=== PATIENT | male | born 1950 | race Caucasian/White ===

== ENCOUNTER 2024-05-16 02:07 | Inpatient (IN) | payer MEDICARE, SELFPAY ==
[2024-05-16] VITALS (21 sets, daily range): BP systolic 107–155; BP diastolic 47–81; PULSE 59–115; RESP 14–20; TEMP 36.2–37.7; O2SAT 94–99; BMI 28.9
--- NOTE | ~2024-05-16 | CT_ITS ---
EXAMINATION: CT ABDOMEN AND PELVIS WITH CONTRAST CLINICAL INFORMATION: Reason for Exam Right lower quadrant pain?appy COMPARISON: None available. TECHNIQUE: Multidetector volumetric images were obtained from the superior aspect of the liver through the pubic symphysis following administration 85 mL of Omnipaque 350 intravenous contrast. Sagittal and coronal reformatted images were obtained on the technologist's workstation. Oral contrast: No This CT examination was performed using dose optimization techniques as appropriate, variously including the following: *Automated exposure control *Adjustment of mA and/or kV according to patient size (this includes techniques or standardized protocols for targeted exams where dose is matched to indication/reason for exam; i.e. extremities or head) *Use of iterative reconstruction technique DLP: 544 mGy-cm FINDINGS: LUNG BASES: The visualized lung bases are unremarkable. LIVER, GALLBLADDER, AND BILIARY TREE: The liver is normal in size, shape, and attenuation. No focal hepatic lesion or biliary ductal dilatation is present. Gallbladder is physiologically distended with minimal suspected cholelithiasis. No gallbladder wall thickening or surrounding inflammation. PANCREAS: Unremarkable. SPLEEN: Unremarkable. ADRENAL GLANDS: Unremarkable. KIDNEYS AND URETERS: No hydronephrosis or obstructing calculus bilaterally. Small right upper pole renal cyst; no follow-up recommended. Left nephrogram appears slightly delayed, which may be due to relative hypoperfusion with severe stenosis noted at the origin of the renal artery. An accessory lower pole renal artery is also noted. BLADDER: Unremarkable. GASTROINTESTINAL TRACT: No evidence of bowel obstruction or significant wall thickening. The appendix is fluid-filled and dilated to approximately 12 mm in diameter. Appendicoliths are present along with significant surrounding stranding, consistent with appendicitis. No free air or discrete abscess is seen at this time. ABDOMINAL WALL: No significant hernia is appreciated. LYMPH NODES: Normal. VASCULAR: There is atherosclerotic calcification along the aorta and iliac arteries. PELVIC VISCERA: Metallic prostatic seeds are noted. OSSEOUS STRUCTURES: Multilevel degenerative changes in the spine. CT/CT abdomen pelvis w IV con IMPRESSION: 1. Findings consistent with acute appendicitis as described above. 2. 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 3. Suspected minimal cholelithiasis.
--- NOTE | ~2024-05-16 | XR_ITS ---
EXAMINATION: XR CHEST CLINICAL INFORMATION: Preop COMPARISON: None available. TECHNIQUE: Frontal view of the chest was obtained. FINDINGS: Median sternotomy wires. Mediastinal clips. Heart size within normal limits. Low lung volumes. There is no gross pneumothorax. Trace left pleural effusion. Mild asymmetric elevation of the left lung base. Mild bibasilar opacities likely represent subsegmental atelectasis, although an infectious/inflammatory process should also be considered in the appropriate clinical setting. Dextroscoliosis of the thoracic spine with multilevel degenerative changes. XR/XR chest 1V IMPRESSION: Mild bibasilar opacities likely represent subsegmental atelectasis, although an infectious/inflammatory process should also be considered in the appropriate clinical setting. Trace left pleural effusion. This study was presented today May 16, 2024 for interpretation. Stat results provided at this time as requested by referring provider.
--- NOTE | 2024-05-16 02:21 | ED.ABDPAIN ---
HPI - Abdominal Pain General Chief Complaint: Abdominal Pain Stated Complaint: ? Appendicitis Time Seen by Provider: 05/16/24 02:21 Source: patient Mode of arrival: ambulatory Limitations: no limitations History of Present Illness ED Provider: alison HERNANDEZ narrative: Patient with no significant past medical history noticed sudden onset of right lower abdominal pain on 05/14/24 a.m. since then pain continued to get worse associated with nausea and vomiting poor appetite no fever no chills patient never had similar pain in the past no urinary complaints no hematuria patient still has appendix Related Data Allergies Allergy/AdvReac Type Severity Reaction Status Date / Time ibuprofen [From MOTRIN] Allergy Intermediate HIVES Verified 05/16/24 02:13 Penicillins [PENICILLINS] Allergy Unknown DOESN'T Verified 05/16/24 02:13 REMEMBER Review of Systems Review of Systems Yes all other systems are reviewed and are negative [facility] Past Medical History Medical History (Updated 05/16/24 @ 06:17 by Ketaon Murrell MD) Hyperlipidemia Hypertension Coronary artery disease Surgical History (Updated 05/16/24 @ 06:17 by Keaton Murrell MD) S/P CABG x 4 Social History Social History Smoked in Last 30 Days: No Use of substances other than those prescribed or required for medical reasons: No Advance Directives: No Advance Directives Information Provided: Yes Do you have a plan to hurt others: No Plan Physical Exam ED Vital Signs: Vital Signs - 24 hr 05/16/24 02:12 05/16/24 02:24 Temperature 99.0 F 98.8 F Pulse Rate 70 69 Respiratory Rate 14 17 Blood Pressure 143/70 H 150/67 H Pulse Oximetry 96 97 Oxygen Delivery Method Room Air Room Air BMI result Body Mass Index 28.9 Appearance: Alert. Oriented X3. In mild discomfort Eyes: No pallor or icterus ENT: Pharynx normal. Oral Mucosa moist Neck: Normal inspection. Neck supple. CVS: Normal heart rate and rhythm. Pulses normal. Respiratory: No respiratory distress. Equal air entry bilateral, no wheezing/rales/rhonchi Abdomen: Soft and tenderness and guarding right lower quadrant no rebound tenderness. Bowel sounds are present, no mass palpable, no CVA tenderness Skin: Skin warm and dry. Normal skin color. Normal skin turgor. Extremities: No lower extremity edema. No calf tenderness Neuro: Oriented X 3. Medical Decision Making Medical Decision Making [facility] Narrative: Patient has acute onset of lower quadrant pain CT scan showed acute appendicitis without any fluid collection , case discussed with Dr. Talbert will admit patient to surgical service for appendectomy Differential Diagnosis Differential Diagnoses: The differential diagnosis associated with the presentation includes Kidney stone/appendicitis/diverticulitis Admission/Observation Consideration of admission/observation: Escalation of care including admission/observation considered Consult Healthcare Provider Management of the patient was discussed with: Oil Developer Dr. Talbert surgeon will admit to the service Lab Data [facility] Lab Attestation statement: I reviewed the patient's lab results. 05/16/24 02:31 05/16/24 02:31 Labs: Lab Results 05/16/24 05/16/24 Range/Units 02:31 04:52 WBC 18.4 H (4.8-10.8) X10*3/uL RBC 5.07 (4.60-5.80) X10*6/uL Hgb 15.4 (14.0-18.0) g/dl Hct 44.1 (42.0-52.0) % MCV 87.0 (80.0-98.0) fL MCH 30.4 (27.0-33.0) pg MCHC 34.9 (31.0-36.0) g/dl RDW 12.4 (11.0-16.0) % Plt Count 188 (160-400) X10*3/uL MPV 10.7 (9.4-12.4) fL Immature Gran % (Auto) 0.4 (0.0-0.4) % Neut % (Auto) 81.2 H (45-73) % Lymph % (Auto) 8.7 L (20-40) % [place] % (Auto) 9.0 (2-11) % Eos % (Auto) 0.4 (0-4) % Baso % (Auto) 0.3 (0-2) % Lymph # (Auto) 1.6 (1.2-4.9) X10*3/uL [place] # (Auto) 1.7 H (0.1-1.2) X10*3/uL Eos # (Auto) 0.1 (0.0-0.4) X10*3/uL Baso # (Auto) 0.1 (0.0-0.2) X10*3/uL Abs Immat Gran (auto) 0.07 H (0.00-0.03) X10*3/uL Absolute Neuts (auto) 14.9 H (2.0-8.3) x10*3/uL Absolute Nucleated RBC 0.000 (0.0-0.012) X10*3/uL Nucleated RBC % (auto) 0.0 (0.0-0.2) /100WBC Smear Tech's Comments VERIFIED Sodium 133 L (135-145) mmol/L Potassium 4.0 (3.3-5.1) mmol/L Chloride 96 (96-108) mmol/L Carbon Dioxide 24 (22-29) mmol/L Anion Gap 17 (12-20) BUN 22 H (9-16) mg/dL Creatinine 1.39 (0.5-1.4) mg/dL Estim Creat Clear Calc 46.6 Estimated GFR 50 Random Glucose 238 H (60-115) mg/dL Lactic Acid 2.3 H* (0.5-2.0) mmol/L Lactic Acid F/U @ 2Hr 2.2 H* (0.5-2.0) mmol/L Calcium 9.5 (8.4-10.2) mg/dL Total Bilirubin 1.6 H (0.0-1.0) mg/dL AST 15 (5-37) U/L ALT 15 (0-40) U/L Alkaline Phosphatase 80 (39-117) U/L Total Protein 7.7 (6.5-8.0) g/dL Albumin 4.4 (3.5-5.0) g/dL Lipase 20 (8-78) U/L Independent Interpretation I performed an independent interpretation of an: EKG, Plain X-Ray and CT Scan Interpretation: Normal sinus rhythm heart rate 92 beats per minute normal interval normal axis no acute ST-T changes no acute ischemia Radiology Impression Discussion of test interpretation with radiology: I have reviewed the radiologist's reading. Radiologist Impression: Close Abdomen/Pelvis CT (Signed) Pierre Carpenter - 05/16/24 Launch?Image [address] [address] [address] Scan Report Signed Patient: Jerardo Lacey MR#: [id number] : 1950 Acct:[id number] Age/Sex: 73 / M ADM Date: 05/16/24 Loc: HO.ED Attending Dr: Ordering Physician: Keaton Murrell MD Date of Service: 05/16/24 Procedure(s): CT abdomen pelvis w IV con Accession Number(s): [id number] cc: Physician,Unknown ; Keaton Murrell MD~ EXAMINATION: CT ABDOMEN AND PELVIS WITH CONTRAST CLINICAL INFORMATION: Reason for Exam Right lower quadrant pain?appy COMPARISON: None available. TECHNIQUE: Multidetector volumetric images were obtained from the superior aspect of the liver through the pubic symphysis following administration 85 mL of Omnipaque 350 intravenous contrast. Sagittal and coronal reformatted images were obtained on the technologist's workstation. Oral contrast: No This CT examination was performed using dose optimization techniques as appropriate, variously including the following: *Automated exposure control *Adjustment of mA and/or kV according to patient size (this includes techniques or standardized protocols for targeted exams where dose is matched to indication/reason for exam; i.e. extremities or head) *Use of iterative reconstruction technique DLP: 544 mGy-cm FINDINGS: LUNG BASES: The visualized lung bases are unremarkable. LIVER, GALLBLADDER, AND BILIARY TREE: The liver is normal in size, shape, and attenuation. No focal hepatic lesion or biliary ductal dilatation is present. Gallbladder is physiologically distended with minimal suspected cholelithiasis. No gallbladder wall thickening or surrounding inflammation. PANCREAS: Unremarkable. SPLEEN: Unremarkable. ADRENAL GLANDS: Unremarkable. KIDNEYS AND URETERS: No hydronephrosis or obstructing calculus bilaterally. Small right upper pole renal cyst; no follow-up recommended. Left nephrogram appears slightly delayed, which may be due to relative hypoperfusion with severe stenosis noted at the origin of the renal artery. An accessory lower pole renal artery is also noted. BLADDER: Unremarkable. GASTROINTESTINAL TRACT: No evidence of bowel obstruction or significant wall thickening. The appendix is fluid-filled and dilated to approximately 12 mm in diameter. Appendicoliths are present along with significant surrounding stranding, consistent with appendicitis. No free air or discrete abscess is seen at this time. ABDOMINAL WALL: No significant hernia is appreciated. LYMPH NODES: Normal. VASCULAR: There is atherosclerotic calcification along the aorta and iliac arteries. PELVIC VISCERA: Metallic prostatic seeds are noted. OSSEOUS STRUCTURES: Multilevel degenerative changes in the spine. CT/CT abdomen pelvis w IV con IMPRESSION: 1. Findings consistent with acute appendicitis as described above. 2. 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 3. Suspected minimal cholelithiasis. Medications Administered Discontinued Medications Generic Name Dose Route Start Last Admin Trade Name Freq PRN Reason Stop Dose Admin Sodium Chloride 1,000 mls @ 999 mls/hr 05/16/24 02:22 05/16/24 04:10 Ns IV 05/16/24 03:22 Infused .Q1H1M ONE Infusion Sodium Chloride 1,000 mls @ 999 mls/hr 05/16/24 02:54 05/16/24 04:40 Ns IV 05/16/24 03:54 Infused .Q1H1M ONE Infusion Piperacillin Sod/Tazobactam 50 mls @ 100 mls/hr 05/16/24 02:54 05/16/24 04:11 Sod 3.375 gm/ Sodium Chloride IV 05/16/24 03:23 Infused ONCE ONE Infusion Iohexol 85 ml 05/16/24 03:32 05/16/24 03:32 Iohexol 350 Mg/Ml 100 Ml Infus..Btl IV 05/16/24 03:33 85 ml ONCE ONE Administration Morphine Sulfate 4 mg 05/16/24 02:30 05/16/24 02:45 Morphine Sulfate 4 Mg/Ml Cartridge IVPUSH 05/16/24 02:31 4 mg ONCE ONE Administration Protocol Ondansetron HCl 4 mg 05/16/24 02:30 05/16/24 02:45 Ondansetron Hcl 4 Mg/2 Ml Vial IVPUSH 05/16/24 02:31 4 mg ONCE ONE Administration Discharge Plan Discharge Clinical Impression: Acute appendicitis Patient Disposition: Admitted As Inpatient Print Language: Algerian
[2024-05-16 02:40] LABS: Basophils Absolute Auto 0.1 X10*3/uL (0.0-0.2); Basophils Percent Auto 0.3 % (0-2); Eosinophils Absolute Auto 0.1 X10*3/uL (0.0-0.4); Eosinophils Percent Auto 0.4 % (0-4); Hematocrit 44.1 % (42.0-52.0); Hemoglobin 15.4 g/dl (14.0-18.0); Imm Gran Abs Auto 0.07 X10*3/uL (0.00-0.03); Imm Gran Pct Auto 0.4 % (0.0-0.4); Lymphocytes Absolute Auto 1.6 X10*3/uL (1.2-4.9); Lymphocytes Percent Auto 8.7 % (20-40); MANUAL DIFF FLAG SCAN; Mean Corpuscular HGB Conc 34.9 g/dl (31.0-36.0); Mean Corpuscular Hemoglobin 30.4 pg (27.0-33.0); Mean Platelet Volume 10.7 fL (9.4-12.4); Monocytes Absolute Auto 1.7 X10*3/uL (0.1-1.2); Neutrophils Absolute Auto 14.9 x10*3/uL (2.0-8.3); Neutrophils Percent Auto 81.2 % (45-73); Platelet Count 188 X10*3/uL (160-400); Red Blood Count 5.07 X10*6/uL (4.60-5.80); Red Cell Distribution Width 12.4 % (11.0-16.0); SCAN SMEAR FLAG 1; White Blood Count 18.4 X10*3/uL (4.8-10.8)
[2024-05-16] MEDS: 0.9 % Sodium Chloride 1,000 ML 999 ML IV ×2 (02:44→03:37)
[2024-05-16] MEDS: ondansetron HCL 4 MG/2 ML VIAL IVPUSH (02:45)
[2024-05-16] MEDS: Morphine Sulfate 4 MG/ML CARTRIDGE IVPUSH (02:45)
[2024-05-16 02:54] LABS: Lactic Acid 2.3 mmol/L (0.5-2.0)
[2024-05-16 02:58] LABS: SLIDE REVIEW VERIFIED
[2024-05-16 03:02] LABS: Alanine Aminotransferase 15 U/L (0-40); Albumin Level 4.4 g/dL (3.5-5.0); Alkaline Phosphatase 80 U/L (39-117); Anion Gap 17 (12-20); Aspartate Amino Transferase 15 U/L (5-37); Bilirubin Total 1.6 mg/dL (0.0-1.0); Blood Urea Nitrogen 22 mg/dL (9-16); Calcium 9.5 mg/dL (8.4-10.2); Carbon Dioxide 24 mmol/L (22-29); Chloride 96 mmol/L (96-108); Creatinine Clr Calc Pharmacy 46.6; Estimated Glomerular Filt Rate 50; Glucose Random 238 mg/dL (60-115); Lipase 20 U/L (8-78); Sodium 133 mmol/L (135-145); Total Protein 7.7 g/dL (6.5-8.0)
[2024-05-16] MEDS: iohexoL 350 MG/ML 100 ML INFUS..BTL 85 ML IV (03:32)
[2024-05-16] MEDS: Piperacillin Sodium/Tazobactam 3.375 GM in 0.9 % Sodium Chloride 50 ML IV ×4 (03:37→22:41)
[2024-05-16 04:35] LABS: Reflex Lactate? Lactic Acid Added
[2024-05-16 05:11] LABS: ~Lactic Acid-LAB USE ONLY 2.2 mmol/L (0.5-2.0)
--- NOTE | 2024-05-16 06:02 | ECG_ITS ---
Test Reason : PRE OP Blood Pressure : / mmHG Vent. Rate : 092 BPM Atrial Rate : 092 BPM P-R Int : 170 ms QRS Dur : 082 ms QT Int : 364 ms P-R-T Axes : -07 026 024 degrees QTc Int : 450 ms Normal sinus rhythm Nonspecific T wave abnormality Abnormal ECG No previous ECGs available Referred By: Keaton Murrell Electronically Signed By:Kyler Helms
[2024-05-16] MEDS: Lactated Ringers 1,000 ML 125 ML IVCONT ×2 (06:18→17:23)
[2024-05-16 06:55] LABS: Reflex Lactate? 2 Y
--- NOTE | 2024-05-16 07:20 | PC.NURSE ---
Care of Pt assumed at change of shift. Pt us currently resting comfortably with eyes closed on stretcher. NAD noted at this time.
--- NOTE | 2024-05-16 07:45 | PM.HPGS ---
History of Present Illness History of Present Illness Date of Service: 05/16/24 Chief complaint: Acute appendicitis Narrative: Jerardo Lacey is a 73 year old male presenting with complaints of abdominal pain in the right lower quadrant. The pain began in the right lower quadrant and has stayed in this location for the past 24 hours. He denies nausea, vomiting, fever, or chills. The pain increases with walking but is improved when staying still. He reports the pain initially at 10/10 but is currently at 5/10 after pain medication. He denies a previous history of similar pain. Workup in the emergency department revealed tenderness in the right lower quadrant over McBurney's point. WBC was elevated at 18.4. CT abdomen and pelvis revealed a fecalith with possible dilated appendix suggestive of acute appendicitis. He is admitted to the surgical service for further management of the acute appendicitis. Review of Systems Review of Systems: Yes all other systems are reviewed and are negative Constitutional: Constitutional: Denies chills, Denies fever(s), Denies headache(s), Denies poor appetite and Denies weakness ENT: Denies headache(s) Cardiovascular: Cardiovascular: Denies chest pain, Denies irregular heart rhythm, Denies palpitations and Denies dyspnea Respiratory: Respiratory: Denies cough, Denies excessive phlegm production and Denies dyspnea Gastrointestinal: Gastrointestinal: Reports abdominal pain, Denies bloating, Denies change in bowel habits, Denies constipation, Denies heartburn, Denies diarrhea, Denies nausea and Denies vomiting Genitourinary: Genitourinary: Denies difficulty urinating and Denies urinary frequency Musculoskeletal: Musculoskeletal: Denies back pain, Denies muscle weakness and Denies numbness Integumentary/Breasts: Skin/Breast: Denies changing lesions and Denies unusual bruising Neurologic: Denies headache(s), Denies numbness, Denies paresthesias and Denies weakness Psychiatric: Psychiatric: Denies anxiety and Denies depression Endocrine: Endocrine: Denies palpitations Hematologic/Lymphatic: Hematologic/Lymphatic: Denies lymphadenopathy PMFSH Past Medical History Medical History Hyperlipidemia Hypertension Coronary artery disease Surgical History Surgical History S/P CABG x 4 Social History Social History Smoked in Last 30 Days: No Use of substances other than those prescribed or required for medical reasons: No Advance Directives: No Advance Directives Information Provided: Yes Do you have a plan to hurt others: No Plan Meds Allergies Allergy/AdvReac Type Severity Reaction Status Date / Time ibuprofen [From MOTRIN] Allergy Intermediate HIVES Verified 05/16/24 02:13 Penicillins [PENICILLINS] Allergy Unknown DOESN'T Verified 05/16/24 02:13 REMEMBER Active Medications: Current Medications Hydromorphone HCl (Hydromorphone Hcl 0.5 Mg/0.5 Ml Syringe) 0.5 mg IVPUSH Q3H PRN; Protocol PRN Reason: Pain, Severe (Pain Scale 7-10) Piperacillin Sod/Tazobactam (Sod 3.375 gm/ Sodium Chloride) 50 mls @ 100 mls/hr IV Q6H MAN Lactated Ringer's (Lr) 1,000 mls @ 125 mls/hr IVCONT .Q8H MAN Last Admin: 05/16/24 06:18 Dose: 125 mls/hr Home Medications ?Medication ?Instructions ?Recorded ?Confirmed ?Last Taken ?Type aspirin 81 mg chewable tablet 81 mg PO DAILY 05/16/24 05/16/24 Unknown History atorvastatin 80 mg tablet 80 mg PO DAILY 05/16/24 05/16/24 Unknown History empagliflozin 25 mg tablet 25 mg PO DAILY 05/16/24 05/16/24 Unknown History (Jardiance) hydrochlorothiazide 25 mg tablet 25 mg PO DAILY 05/16/24 05/16/24 Unknown History lisinopril 10 mg tablet 10 mg PO DAILY 05/16/24 05/16/24 Unknown History metformin 1,000 mg tablet 1,000 mg PO BID 05/16/24 05/16/24 Unknown History metoprolol succinate 25 mg 25 mg PO DAILY 05/16/24 05/16/24 Unknown History tablet,extended release 24 hr Physical Exam Vital Signs: Vital Signs: Last Vital Signs Temp 99.7 F 05/16/24 06:00 Pulse 86 05/16/24 06:00 Resp 16 05/16/24 06:00 BP 129/81 05/16/24 06:00 Pulse Ox 94 08/05/24 06:00 O2 Del Method Room Air 05/16/24 06:00 BMI result Body Mass Index 28.9 Const: General: cooperative and no acute distress Nutritional Appearance: well nourished Orientation/consciousness: patient oriented x3 Limitations: no limitations HEENT: Head: Yes normocephalic and Yes atraumatic Ears: hearing grossly normal bilaterally Chest: Other: Median sternotomy incision Resp: Effort & Inspection: normal respiratory effort, no audible wheezes, no cough and no respiratory distress Cardio: Jugular venous distension: no JVD GI: Other: Soft, tender in the right lower quadrant, negative Rovsing sign, localized rebound and guarding. Inspection: Yes normal to inspection Percussion: Yes normal to percussion Skin: Other: Warm, dry, no rash Neuro: General: patient oriented x3 Extrem: General: Yes no clubbing, cyanosis or edema Results Results Labs: Short CBC 05/16/24 Range/Units 02:31 WBC 18.4 H (4.8-10.8) X10*3/uL Hgb 15.4 (14.0-18.0) g/dl Hct 44.1 (42.0-52.0) % Plt Count 188 (160-400) X10*3/uL BMP 05/16/24 02:31 Sodium 133 L Potassium 4.0 Chloride 96 Carbon Dioxide 24 BUN 22 H Creatinine 1.39 Calcium 9.5 Liver Function 05/16/24 Range/Units 02:31 Total Bilirubin 1.6 H (0.0-1.0) mg/dL AST 15 (5-37) U/L ALT 15 (0-40) U/L Alkaline Phosphatase 80 (39-117) U/L Albumin 4.4 (3.5-5.0) g/dL Assessment and Plan (1) Acute appendicitis: Qualifiers: Acute appendicitis type: with localized peritonitis Appendicitis gangrene presence: unspecified whether gangrene present Appendicitis perforation presence: unspecified whether perforation present Appendicitis abscess presence: unspecified whether abscess present Qualified Code(s): K35.30 - Acute appendicitis with localized peritonitis, without perforation or gangrene Status: Acute Plan 73-year-old male patient with a prior history of coronary artery disease presenting today with abdominal pain in the right lower quadrant. On examination he is tender in the right lower quadrant over McBurney's point. Laboratories revealed an elevated WBC of 18.6. CT abdomen and pelvis are suggestive of acute appendicitis. There is a fecalith noted at the base of the appendix as well. I recommended a laparoscopic or possible open appendectomy and after discussion of the procedure, risks, and alternatives, consents to the surgery. He has been added onto the operative schedule for today. Quality Stroke Does the patient have a stroke diagnosis?: No VTE Prior VTE?: No VTE Risk Level:: Surgical - moderate VTE Device Contraindication: N/A - Device Ordered VTE Drug Contraindication: Treatment Not Indicated Procedures Date of Service Date of Service: 05/16/24
[2024-05-16 08:54] LABS: ~Lactic Acid-LAB USE ONLY 1.9 mmol/L (0.5-2.0)
--- NOTE | 2024-05-16 09:27 | PHA.MEDREC ---
Addendum entered by Yana Maier RPh 05/16/24 09:38: reviewed Original Note: Pharmacy Consult ? Medication Reconciliation Pharmacy has completed the medication reconciliation. Confirmed medications with patient.
--- NOTE | 2024-05-16 11:09 | MHC.CM.PN ---
pt live alone is indepedent has no previous services dc plan home no servies
--- NOTE | 2024-05-16 12:05 | P.CONAN_ITS ---
HPI - Anesthesia Eval Consult details Narrative: appy Anesthesia Pre-Procedure Meds Is the patient on any of the following meds?: SGLT2 Inhib If yes to any meds - educate patient: Pt education - increased risk of aspiration and/or euvolemic DKA and Pt education - possibility of cancelled proc at provider's discretion PMF Active Problems Active Problems: All Active Problems Acute appendicitis (Acute) Past Medical History Medical History Hyperlipidemia Hypertension Coronary artery disease Family History Family history of problems with anesthesia: No Surgical History Surgical History S/P CABG x 4 History of Problems with Anesthesia: No Social History Social History Smoked in Last 30 Days: No Use of substances other than those prescribed or required for medical reasons: No Advance Directives: No Advance Directives Information Provided: Yes Do you have a plan to hurt others: No Plan service: No Meds Allergies Allergy/AdvReac Type Severity Reaction Status Date / Time ibuprofen [From MOTRIN] Allergy Intermediate HIVES Verified 05/16/24 02:13 Penicillins [PENICILLINS] Allergy Unknown DOESN'T Verified 05/16/24 02:13 REMEMBER Active Medications: Current Medications Hydromorphone HCl (Hydromorphone Hcl 0.5 Mg/0.5 Ml Syringe) 0.5 mg IVPUSH Q3H PRN; Protocol PRN Reason: Pain, Severe (Pain Scale 7-10) Piperacillin Sod/Tazobactam (Sod 3.375 gm/ Sodium Chloride) 50 mls @ 100 mls/hr IV Q6H [facility] Last Infusion: 05/16/24 10:38 Dose: Infused Lactated Ringer's (Lr) 1,000 mls @ 125 mls/hr IVCONT .Q8H [facility] Last Admin: 05/16/24 06:18 Dose: 125 mls/hr Home Medications ?Medication ?Instructions ?Recorded ?Confirmed ?Last Taken ?Type aspirin 81 mg chewable tablet 81 mg PO DAILY 05/16/24 05/16/24 05/16/24 History atorvastatin 80 mg tablet 80 mg PO DAILY 05/16/24 05/16/2424 History empagliflozin 25 mg tablet 25 mg PO DAILY 05/16/24 05/16/24 05/16/24 History (Jardiance) hydrochlorothiazide 25 mg tablet 25 mg PO DAILY 05/16/24 05/16/24 05/16/24 History lisinopril 10 mg tablet 10 mg PO DAILY 05/16/24 05/16/24 05/16/24 History metformin 1,000 mg tablet 1,000 mg PO DAILY 05/16/24 05/16/24 05/16/24 History metoprolol succinate 25 mg 25 mg PO DAILY 05/16/24 05/16/24 05/16/24 History tablet,extended release 24 hr Exam Height,Weight and Vital Signs: Height 5 ft 6 in Weight 81.1 kg Last Vital Signs Temp 99.7 F 05/16/24 06:00 Pulse 86 05/16/24 06:00 Resp 16 05/16/24 06:00 BP 129/81 05/16/24 06:00 Pulse Ox 94 05/16/24 06:00 O2 Del Method Room Air 05/16/24 06:00 Pertinent Lab Results Pertinent Lab Results: Laboratory Tests 05/16/24 05/16/24 05/16/24 02:31 04:52 08:39 WBC 18.4 H RBC 5.07 Hgb 15.4 Hct 44.1 MCV 87.0 MCH 30.4 MCHC 34.9 RDW 12.4 Plt Count 188 MPV 10.7 Immature Gran % (Auto) 0.4 Neut % (Auto) 81.2 H Lymph % (Auto) 8.7 L [place] % (Auto) 9.0 Eos % (Auto) 0.4 Baso % (Auto) 0.3 Lymph # (Auto) 1.6 [place] # (Auto) 1.7 H Eos # (Auto) 0.1 Baso # (Auto) 0.1 Abs Immat Gran (auto) 0.07 H Absolute Neuts (auto) 14.9 H Absolute Nucleated RBC 0.000 Nucleated RBC % (auto) 0.0 Smear Tech's Comments VERIFIED Sodium 133 L Potassium 4.0 Chloride 96 Carbon Dioxide 24 Anion Gap 17 BUN 22 H Creatinine 1.39 Estim Creat Clear Calc 46.6 Estimated GFR 50 Random Glucose 238 H Lactic Acid 2.3 H* Lactic Acid F/U @ 2Hr 2.2 H* Lactic Acid F/U @ 4Hr 1.9 Calcium 9.5 Total Bilirubin 1.6 H AST 15 ALT 15 Alkaline Phosphatase 80 Total Protein 7.7 Albumin 4.4 Lipase 20 Airway Mallampati Class: II TM Dist: >3cm Neck ROM: Limited Heart: rrr Lungs: cta Assessment and Plan Assessment Anesthesia Assessment: Anesthesia Plan Discussed and Chart Reviewed Final Anesthetic Review Family History of Problems with Anesthesia: No History of Problems with Anesthesia: No NPO: Yes ASA Class: III Final Preanesthetic Review: No Changes in Pt Med Stat, Meds/Allgs Chart Reviewed, Consent Obtained/Reviewed and Anes Risks/Benef Reviewed Patient Risk: Intermediate Procedure Risk: Low Anesthetic Plan Anesthetic Plan: GA Disposition: Standard PACU
--- NOTE | 2024-05-16 12:25 | PC.NURSE ---
Pt noted to have dried blood on underwear, reported he had some bleeding while trying to urinate yesterday. Reports this has resolved and no episodes of it today.
--- NOTE | 2024-05-16 12:41 | PC.NURSE ---
Report given to SSS
[2024-05-16] MEDS: Lactated Ringers 1,000 ML 80 ML IVCONT (13:23)
[2024-05-16 13:34] LABS: Glucose, Whole Blood 123 mg/dL (60-115)
--- NOTE | 2024-05-16 15:18 | P.OP_ITS ---
Operative Note Operative Note Date of Service: 05/16/24 Narrative: Preoperative diagnosis: [] Acute appendicitis Postop diagnosis: [] Local Perforated appendicitis with abscess Procedure [] laparoscopic appendectomy, drainage appendiceal abscess Surgeon: [] Neil Business Risk Analyst: [] Type of Anesthesia: [] General Indication for surgery: [] Patient had a locally perforated appendix which was adhered to the pelvic sidewall with a contained abscess. No other gross intra- abdominal pathology demonstrated Findings: [] Patient brought to the operating room, placed on operative table supine position, after an adequate level of general anesthesia was induced, the patient's abdomen was prepped and draped in usual sterile fashion. Using a supraumbilical curvilinear incision, Larsen technique was used to insufflate abdominal cavity to 15 mm of CO2 lower midline and suprapubic ports were placed under direct laparoscopic view, the patient placed in Trendelenburg position, and tilted to the left. Findings were as noted above. Cecum was identified and a phlegmon along the right iliac fossa area was explored. The appendix was intimately adhered to this and once it was , a localized abscess was demonstrated. Appendix had it is mesentery sequentially taken down using double firing of ligature device. It was then transected the cecal base using endoscopic BANDAR stapler. Specimen was placed in Endo-Catch bag, a retrieved through the umbilical port. Abdominal cavity was very very copiously irrigated and secured hemostasis. A Pietro-Forte drain was left in the right lower quadrant/right iliac fossa and exited through the suprapubic port and secured to the skin using 2-0 nylon. All ports removed under direct laparoscopic view. Wounds were closed in the following manner; umbilical wound is fascia reapproximated using interrupted 0 Vicryl sutures. Skin wounds were closed using subcuticular 4-0 Vicryl sutures followed by Steri-Strips and sterile dressings. Wounds were infiltrated 0.5% Marcaine at completion. Sponge, needle, and instrument counts reported correct. Patient tolerated the procedure well and emerged from anesthesia stable condition. EBL minimal
[2024-05-16] MEDS: HYDROmorphone HCl 0.5 MG/0.5 ML SYRINGE IVPUSH (22:41)
[2024-05-17] MEDS: Lactated Ringers 1,000 ML 125 ML IVCONT ×4 (01:02→20:02)
[2024-05-17 03:44] VITALS: BP 129/60; PULSE 69; RESP 18; TEMP 36.7; O2SAT 93
[2024-05-17] MEDS: Piperacillin Sodium/Tazobactam 3.375 GM in 0.9 % Sodium Chloride 50 ML IV ×4 (04:48→20:03)
[2024-05-17 06:16] LABS: Hematocrit 33.9 % (42.0-52.0); Hemoglobin 11.6 g/dl (14.0-18.0); Mean Corpuscular HGB Conc 34.2 g/dl (31.0-36.0); Mean Corpuscular Hemoglobin 30.4 pg (27.0-33.0); Mean Platelet Volume 11.3 fL (9.4-12.4); Platelet Count 134 X10*3/uL (160-400); Red Blood Count 3.81 X10*6/uL (4.60-5.80); Red Cell Distribution Width 12.7 % (11.0-16.0); White Blood Count 10.2 X10*3/uL (4.8-10.8)
--- NOTE | 2024-05-17 06:46 | PM.PNGS ---
Subjective Subjective Date of Service: 05/17/24 <[facility] Filed: 05/17/24 07:02> 05/17/24 <Ziggy Trejo MD - Last Filed: 05/17/24 09:06> Interval history: Patient reports he is doing well. He reports having abdominal pain but says it is manageable. Denies having an ice pack on incisions overnight. Reports having a bowel movement overnight but denies passing gas. Denies any pain or burning with urination. Tolerating clear liquids without difficulty. Denies headache, nausea, vomiting, shortness or breath or chest pain. <[facility] Filed: 05/17/24 07:02> Physical Exam Vital Signs: Vital Signs: Last Vital Signs Temp 98.0 F 05/17/24 03:44 Pulse 69 05/17/24 03:44 Resp 18 05/17/24 03:44 BP 129/60 05/17/24 03:44 Pulse Ox 93 05/17/24 03:44 O2 Del Method Nasal Cannula 05/17/24 03:44 O2 Flow Rate 2 05/17/24 03:44 BMI result Body Mass Index 28.9 <[facility] Filed: 05/17/24 07:02> Const: General: cooperative, healthy appearing, comfortable and no acute distress <[facility] Filed: 05/17/24 07:02> Orientation/consciousness: patient oriented x3 <[facility] Filed: 05/17/24 07:02> Chest: Chest palpation & inspection: normal inspection of the chest <[facility] Filed: 05/17/24 07:02> Resp: Effort & Inspection: normal respiratory effort and able to speak in complete sentences <[facility] Filed: 05/17/24 07:02> Auscultation: clear to auscultation bilaterally <[facility] Filed: 05/17/24 07:02> Cardio: Rate: regular rate <[facility] Filed: 05/17/24 07:02> Rhythm: regular rhythm <[facility] Filed: 05/17/24 07:02> Heart sounds: S1 normal heart sound present and S2 normal heart sound present <[facility] Filed: 05/17/24 07:02> GI: Inspection: Yes normal to inspection, Yes incision (bandages are clear, dry and intact) and Yes other (bulb suction in place, scant amount of drainage visualized) <[facility] Filed: 05/17/24 07:02> Skin: Lesions: no lesions <[facility] Filed: 05/17/24 07:02> Rashes: no rashes <[facility] Filed: 05/17/24 07:02> Neuro: General: patient oriented x3 <[facility] Filed: 05/17/24 07:02> Objective Data Active Medications Acetaminophen (Acetaminophen 325 Mg Tablet) 650 mg PO Q6H PRN PRN Reason: Pain, Mild (Pain Scale 1-3), fever or headache Calcium Carbonate (Calcium Carbonate 750 Mg Tab.Chew) 750 mg PO Q4H PRN PRN Reason: Heartburn Hydromorphone HCl (Hydromorphone Hcl 0.5 Mg/0.5 Ml Syringe) 0.5 mg IVPUSH Q3H PRN; Protocol PRN Reason: Pain, Severe (Pain Scale 7-10) Last Admin: 05/16/24 22:41 Dose: 0.5 mg Documented By: MARCOS Piperacillin Sod/Tazobactam (Sod 3.375 gm/ Sodium Chloride) 50 mls @ 100 mls/hr IV Q6H [facility] Last Infusion: 05/17/24 05:27 Dose: Infused Documented By: MARCOS Lactated Ringer's (Lr) 1,000 mls @ 125 mls/hr IVCONT .Q8H [facility] Last Admin: 05/17/24 05:47 Dose: 125 mls/hr Documented By: MARCOS Lactated Ringer's (Lr) 1,000 mls @ 80 mls/hr IVCONT .[id number] [facility] Last Admin: 05/17/24 02:08 Dose: Not Given Documented By: MARCOS Non-Admin Reason: 125/hr per surgeon Magnesium Hydroxide (Milk Of Magnesia 30 Ml Oral.Susp) 30 ml PO DAILY PRN PRN Reason: Constipation Melatonin (Melatonin 3 Mg Tablet) 6 mg PO BEDTIME PRN PRN Reason: Insomnia Sodium Chloride (0.9 % Sodium Chloride Flush 3 Ml Syringe) 3 ml IVFLUSH QSHIFT [facility] Last Admin: 05/17/24 01:15 Dose: Not Given Documented By: MARCOS Non-Admin Reason: IV Running <[facility] Filed: 05/17/24 07:02> Labs CBC & Chem 7: 05/17/24 05:11 05/16/24 02:31 <[facility] Filed: 05/17/24 07:02> Labs: Laboratory Results - last 24 hr 05/16/24 05/16/24 05/17/24 08:39 13:31 05:11 MCV 89.0 MCH 30.4 MCHC 34.2 RDW 12.7 Plt Count 134 L D MPV 11.3 Absolute Nucleated RBC 0.000 Nucleated RBC % (auto) 0.0 POC Glucose 123 H Lactic Acid F/U @ 4Hr 1.9 <[facility] Filed: 05/17/24 07:02> Procedures Date of Service Date of Service: 05/17/24 <[facility] Filed: 05/17/24 07:02> 05/17/24 <Ziggy Trejo MD - Last Filed: 05/17/24 09:06> Progress Note: A&P Assessment and plan (1) Acute perforated appendicitis: Status: Acute <[facility] Filed: 05/17/24 07:02> Assessment and Plan: Patient is s/p laparoscopic appendectomy due to acute appendicitis with perforation. He is managing his pain well, recommended to apply ice pack over the incision Continue ambulation as tolerated Consider trial of PO pain medications and antibiotics Recommend advancing to regular soft diet, if well tolerated can consider discharge later today <[facility] Filed: 05/17/24 07:02> Patient is s/p laparoscopic appendectomy due to acute appendicitis with perforation. He is managing his pain well, recommended to apply ice pack over the incision Continue ambulation as tolerated Consider trial of PO pain medications and antibiotics Recommend advancing to regular soft diet, if well tolerated can consider discharge perhaps tomorrow. Continue IV antibiotics for now. Probably DC GAB tomorrow as well <Ziggy Trejo MD - Last Filed: 05/17/24 09:06> Time Spent With Patient Time: Total time managing care of this patient today ____ minutes. <[facility] Filed: 05/17/24 07:02> Quality Stroke Does the patient have a stroke diagnosis?: No <[facility] Filed: 05/17/24 07:02> VTE Prior VTE?: No <[facility] Filed: 05/17/24 07:02> VTE Risk Level:: Surgical - moderate <[facility] Filed: 05/17/24 07:02> VTE Device Contraindication: N/A - Device Ordered <[facility] Filed: 05/17/24 07:02> VTE Drug Contraindication: Treatment Not Indicated <[facility] Filed: 05/17/24 07:02>
[2024-05-17 07:56] VITALS: BP 120/61; PULSE 71; RESP 16; TEMP 37.3; O2SAT 94
[2024-05-17] MEDS: HYDROmorphone HCl 0.5 MG/0.5 ML SYRINGE IVPUSH (09:41)
--- NOTE | 2024-05-17 09:57 | HO.POSTANES ---
Post Anesthesia Evaluation Post Anesthesia Evaluation Date of Service: 05/17/24 Vital Signs: Vital Signs Temp Pulse Resp BP Pulse Ox O2 Del Method O2 Flow Rate 05/17/24 07:56 99.2 F 71 16 120/61 94 Room Air 05/17/24 03:44 98.0 F 69 18 129/60 93 Nasal Cannula 2 Anesthesia: General Endotracheal-GETA Mental Status: Awake Pain Control: Satisfactory Nausea/Vomiting: None Hydration: Adequate Anesthesia-Related Issues: No Anes. Related Issues
[2024-05-17 15:00] VITALS: BP 159/71; PULSE 77; RESP 18; TEMP 36.9; O2SAT 96
[2024-05-17 19:10] VITALS: BP 148/67; PULSE 86; RESP 18; TEMP 37.8; O2SAT 95
[2024-05-17 20:00] VITALS: TEMP 38.4
[2024-05-17] MEDS: Acetaminophen 325 MG TABLET 650 MG PO (20:00)
--- NOTE | 2024-05-17 20:11 | PC.NURSE ---
PRN Tylenol 650 mg po given for fever 101.2 oral, Dr. Sanderson was made aware.
[2024-05-17 22:11] VITALS: TEMP 37.1
[2024-05-18] MEDS: Piperacillin Sodium/Tazobactam 3.375 GM in 0.9 % Sodium Chloride 50 ML IV ×4 (02:30→21:05)
--- NOTE | 2024-05-18 02:45 | PC.NURSE ---
Pt with temp 100.1 temporal with routine vitals at the start of the shift, temp rechecked =101.2 orally at 1999, ice packs was in use by pt, prn Tyleno po 650 mg po given, Gladys Sanderson was notified. Temp rechecked =98.8, offered more ice packs for the surgical site, pt refused, encouraged IC use, compression boots in use.
[2024-05-18 03:53] VITALS: BP 151/70; PULSE 78; RESP 16; TEMP 36.3; O2SAT 96
[2024-05-18] MEDS: Lactated Ringers 1,000 ML 125 ML IVCONT (04:04)
--- NOTE | 2024-05-18 06:46 | PM.PNGS ---
Subjective Subjective Date of Service: 05/18/24 <[facility] Filed: 05/18/24 06:58> 05/18/24 <Ziggy Trejo MD - Last Filed: 05/18/24 07:16> Interval history: S/p laparoscopic appendectomy Patient reports he is doing well overall. He says his pain is improved from yesterday. Overnight he spiked a fever of 101.2, nursing gave acetaminophen around 8pm. Has remained afebrile since. He reports last night he felt very warm and sweaty but since taking the acetaminophen his symptoms have improved. Tolerating full liquid diet without difficulty. Continues to urinated and pass gas without difficulty, no additional BMs since 05/16. GAB drain remains intact, small amount of drainage visible in bulb. <[facility] Filed: 05/18/24 06:58> Physical Exam Vital Signs: Vital Signs: Last Vital Signs Temp 97.4 F 05/18/24 03:53 Pulse 78 05/18/24 03:53 Resp 16 05/18/24 03:53 BP 151/70 H 05/18/24 03:53 Pulse Ox 96 05/18/24 03:53 O2 Del Method Room Air 05/18/24 03:53 O2 Flow Rate 2 05/17/24 03:44 BMI result Body Mass Index 28.9 <[facility] Filed: 05/18/24 06:58> Const: General: cooperative, healthy appearing and comfortable <[facility] Filed: 05/18/24 06:58> Orientation/consciousness: patient oriented x3 <[facility] Filed: 05/18/24 06:58> Resp: Effort & Inspection: normal respiratory effort and able to speak in complete sentences <[facility] Filed: 05/18/24 06:58> Auscultation: clear to auscultation bilaterally <[facility] Filed: 05/18/24 06:58> Cardio: Rate: regular rate <[facility] Filed: 05/18/24 06:58> Rhythm: regular rhythm <[facility] Filed: 05/18/24 06:58> Heart sounds: S1 normal heart sound present and S2 normal heart sound present <[facility] Filed: 05/18/24 06:58> GI: Inspection: Yes normal to inspection, Yes incision (bandages remain clear, dry and intact) and Yes other (Drain remains intact, small amount of drainage visible.) <[facility] Last Filed: 05/18/24 06:58> Neuro: General: patient oriented x3 <[facility] Last Filed: 05/18/24 06:58> Objective Data Active Medications Acetaminophen (Acetaminophen 325 Mg Tablet) 650 mg PO Q6H PRN PRN Reason: Pain, Mild (Pain Scale 1-3), fever or headache Last Admin: 05/17/24 20:00 Dose: 650 mg Documented By: MICHELLE Calcium Carbonate (Calcium Carbonate 750 Mg Tab.Chew) 750 mg PO Q4H PRN PRN Reason: Heartburn Hydromorphone HCl (Hydromorphone Hcl 0.5 Mg/0.5 Ml Syringe) 0.5 mg IVPUSH Q3H PRN; Protocol PRN Reason: Pain, Severe (Pain Scale 7-10) Last Admin: 05/17/24 09:41 Dose: 0.5 mg Documented By: KECIA Piperacillin Sod/Tazobactam (Sod 3.375 gm/ Sodium Chloride) 50 mls @ 100 mls/hr IV Q6H [facility] Last Infusion: 05/18/24 03:08 Dose: Infused Documented By: MICHELLE Lactated Ringer's (Lr) 1,000 mls @ 80 mls/hr IVCONT .[id number] [facility] Last Admin: 05/18/24 04:05 Dose: Not Given Documented By: MICHELLE Non-Admin Reason: Duplicate Order Magnesium Hydroxide (Milk Of Magnesia 30 Ml Oral.Susp) 30 ml PO DAILY PRN PRN Reason: Constipation Melatonin (Melatonin 3 Mg Tablet) 6 mg PO BEDTIME PRN PRN Reason: Insomnia Sodium Chloride (0.9 % Sodium Chloride Flush 3 Ml Syringe) 3 ml IVFLUSH QSHIFT [facility] Last Admin: 05/18/24 00:00 Dose: Not Given Documented By: MICHELLE Non-Admin Reason: IV Running <[facility] Filed: 05/18/24 06:58> Labs CBC & Chem 7: 05/17/24 05:11 05/16/24 02:31 <[facility] Filed: 05/18/24 06:58> Procedures Date of Service Date of Service: 05/18/24 <[facility] Filed: 05/18/24 06:58> 05/18/24 <Ziggy Trejo MD - Last Filed: 05/18/24 07:16> Progress Note: A&P Assessment and plan (1) Acute perforated appendicitis: Status: Acute <[facility] Filed: 05/18/24 06:58> Assessment and Plan: Patient is s/p laparoscopic appendectomy due to acute appendicitis with perforation. He is managing his pain well, recommended to apply ice pack over the incision Continue ambulation as tolerated Continue IV antibiotics for now. Given fever overnight, recommend rechecking vitals regularly. Recommend advancing to regular soft diet. Will consider discontinuing GAB drain today <[facility] Filed: 05/18/24 06:58> Time Spent With Patient Time: Total time managing care of this patient today ____ minutes. <[facility] Filed: 05/18/24 06:58> Quality Stroke Does the patient have a stroke diagnosis?: No <[facility] Filed: 05/18/24 06:58> VTE Prior VTE?: No <[facility] Filed: 05/18/24 06:58> VTE Risk Level:: Surgical - moderate <[facility] Filed: 05/18/24 06:58> VTE Device Contraindication: N/A - Device Ordered <[facility] Filed: 05/18/24 06:58> VTE Drug Contraindication: Treatment Not Indicated <[facility] Filed: 05/18/24 06:58>
[2024-05-18 07:53] VITALS: BP 166/73; PULSE 84; RESP 16; TEMP 36.9; O2SAT 95
[2024-05-18] MEDS: 0.9 % Sodium Chloride Flush 3 ML SYRINGE IVFLUSH ×3 (09:45→21:49)
[2024-05-18] MEDS: Acetaminophen 325 MG TABLET 650 MG PO ×2 (09:46→19:50)
[2024-05-18 11:58] VITALS: O2SAT 95
[2024-05-18 15:05] VITALS: BP 143/72; PULSE 75; RESP 18; TEMP 36.3; O2SAT 98
[2024-05-18 19:22] VITALS: BP 172/81; PULSE 79; RESP 17; TEMP 37.1; O2SAT 96
[2024-05-18 23:52] VITALS: BP 143/69; PULSE 68; RESP 15; TEMP 36; O2SAT 96
[2024-05-19 02:58] VITALS: BP 185/86; PULSE 69; RESP 16; TEMP 36.1; O2SAT 95
[2024-05-19] MEDS: Piperacillin Sodium/Tazobactam 3.375 GM in 0.9 % Sodium Chloride 50 ML IV (03:31)
[2024-05-19] MEDS: Acetaminophen 325 MG TABLET 650 MG PO (03:32)
[2024-05-19 04:14] VITALS: BP 185/86; PULSE 69
[2024-05-19] MEDS: Metoprolol Succinate ER 25 MG TAB.ER.24H PO (04:14)
[2024-05-19 04:15] VITALS: BP 190/87
[2024-05-19] MEDS: lisinopriL 10 MG TABLET PO (04:15)
[2024-05-19 06:37] VITALS: BP 142/67; PULSE 66; RESP 18; TEMP 36; O2SAT 96
--- NOTE | 2024-05-19 06:45 | PC.NURSE ---
at 4 am bp elevated 185/86 , pt was going to bathroom given few minutes rechecked bp higher 190/87 md notified blood pressure medications ordered and given rechecked bp 142/67
--- NOTE | 2024-05-19 06:48 | P.PNGS_ITS ---
Subjective Subjective Date of Service: 05/19/24 <[facility] Last Filed: 05/19/24 07:25> 05/19/24 <Ziggy Trejo MD - Last Filed: 05/19/24 07:45> Interval history: Patient reports he is doing well. He says his pain has been improving. Only receiving acetaminophen 650mg q 6hrs for pain as needed. Overnight, patient's blood pressure raised to 185/86 and 190/87. Provider notified and ordered his home lisinopril and metoprolol. Recheck of blood pressure was 142/67. Other vitals have remained stable and he is afebrile. Tolerated regular diet at lunch. Of note, patient reports he was not hungry at dinner, he says this is common for him to miss a meal at home. Continues to urinate and have BMs without difficulty. <[facility] Filed: 05/19/24 07:25> Physical Exam 2 Vital Signs: Vital Signs: Last Vital Signs Temp 96.8 F 05/19/24 06:37 Pulse 66 05/19/24 06:37 Resp 18 05/19/24 06:37 BP 142/67 H 05/19/24 06:37 Pulse Ox 96 05/19/24 06:37 O2 Del Method Room Air 05/19/24 06:37 O2 Flow Rate 2 05/17/24 03:44 BMI result Body Mass Index 28.9 <[facility] Filed: 05/19/24 07:25> Const: General: cooperative, healthy appearing and comfortable <[facility] Filed: 05/19/24 07:25> Resp: Effort & Inspection: normal respiratory effort and able to speak in complete sentences <[facility] Filed: 05/19/24 07:25> Auscultation: clear to auscultation bilaterally <[facility] Filed: 05/19/24 07:25> Cardio: Rate: regular rate <[facility] Filed: 05/19/24 07:25> Rhythm: regular rhythm <[facility] Filed: 05/19/24 07:25> Heart sounds: S1 normal heart sound present and S2 normal heart sound present <[facility] Filed: 05/19/24 07:25> GI: Inspection: Yes normal to inspection and Yes incision (bandages are clean, dry and intact) <[facility] Last Filed: 05/19/24 07:25> Palpation (GI): Soft to palpation and Tenderness to palpation present (GI) (tender with palpation near incision sites and RLQ) <[facility] Last Filed: 05/19/24 07:25> Objective Data Active Medications Acetaminophen (Acetaminophen 325 Mg Tablet) 650 mg PO Q6H PRN PRN Reason: Pain, Mild (Pain Scale 1-3), fever or headache Last Admin: 05/19/24 03:32 Dose: 650 mg Documented By: MARISA Calcium Carbonate (Calcium Carbonate 750 Mg Tab.Chew) 750 mg PO Q4H PRN PRN Reason: Heartburn Hydromorphone HCl (Hydromorphone Hcl 0.5 Mg/0.5 Ml Syringe) 0.5 mg IVPUSH Q3H PRN; Protocol PRN Reason: Pain, Severe (Pain Scale 7-10) Last Admin: 05/17/24 09:41 Dose: 0.5 mg Documented By: KECIA Piperacillin Sod/Tazobactam (Sod 3.375 gm/ Sodium Chloride) 50 mls @ 100 mls/hr IV Q6H [facility] Last Infusion: 05/19/24 04:11 Dose: Infused Documented By: MARISA Lisinopril (Lisinopril 10 Mg Tablet) 10 mg PO DAILY [facility]; Protocol Last Admin: 05/19/24 04:15 Dose: 10 mg Documented By: MARISA Magnesium Hydroxide (Milk Of Magnesia 30 Ml Oral.Susp) 30 ml PO DAILY PRN PRN Reason: Constipation Melatonin (Melatonin 3 Mg Tablet) 6 mg PO BEDTIME PRN PRN Reason: Insomnia Metoprolol Succinate (Metoprolol Succinate Er 25 Mg Tab.Er.24h) 25 mg PO DAILY [facility]; Protocol Last Admin: 05/19/24 04:14 Dose: 25 mg Documented By: MARISA Sodium Chloride (0.9 % Sodium Chloride Flush 3 Ml Syringe) 3 ml IVFLUSH QSHIFT [facility] Last Admin: 05/18/24 21:49 Dose: 3 ml Documented By: MARISA <[facility] Last Filed: 05/19/24 07:25> Labs CBC & Chem 7: 05/17/24 05:11 05/16/24 02:31 <[facility] Last Filed: 05/19/24 07:25> Procedures Date of Service Date of Service: 05/19/24 <[facility] Last Filed: 05/19/24 07:25> 05/19/24 <Ziggy Trejo MD - Last Filed: 05/19/24 07:45> Progress Note: A&P Assessment and plan (1) Acute perforated appendicitis: Status: Acute <[facility] Filed: 05/19/24 07:25> Assessment and Plan: Patient is s/p laparoscopic appendectomy due to appendicitis Pain is well managed with acetaminophen Tolerating regular diabetic diet Will transition to PO antibiotics Plan for discharge later today, advised patient to resume home medications and to follow up in the office in 1 week <[facility] Filed: 05/19/24 07:25> Time Spent With Patient Time: Total time managing care of this patient today ____ minutes. <[facility] Filed: 05/19/24 07:25> Quality Stroke Does the patient have a stroke diagnosis?: No <[facility] Filed: 05/19/24 07:25> VTE Prior VTE?: No <[facility] Filed: 05/19/24 07:25> VTE Risk Level:: Surgical - moderate <[facility] Filed: 05/19/24 07:25> VTE Device Contraindication: N/A - Device Ordered <[facility] Filed: 05/19/24 07:25> VTE Drug Contraindication: Treatment Not Indicated <[facility] Filed: 05/19/24 07:25>
--- NOTE | 2024-05-19 08:19 | MHC.CM.PN ---
DP: PT HAS BEEN MEDICALLY CLEARED FOR DC HOME, NO SERVICES. PT HAS OWN RIDE HOME
--- NOTE | 2024-05-19 12:30 | P.DS_ITS ---
DS: Providers Provider Date of Service: 05/19/24 Date of admission: 05/16/24 07:13 Date of discharge: 05/19/24 Primary care physician: Marvin Craig MD DS: Diagnosis Discharge Diagnosis (1) Acute perforated appendicitis: Status: Acute DS: Summary Hospital Course Hospital Course: HPI AT ADMISSION: Jerardo Lacey is a 73 year old male presenting with complaints of abdominal pain in the right lower quadrant. The pain began in the right lower quadrant and has stayed in this location for the past 24 hours. He denies nausea, vomiting, fever, or chills. The pain increases with walking but is improved when staying still. He reports the pain initially at 10/10 but is currently at 5/10 after pain medication. He denies a previous history of similar pain. Workup in the emergency department revealed tenderness in the right lower quadrant over McBurney's point. WBC was elevated at 18.4. CT abdomen and pelvis revealed a fecalith with possible dilated appendix suggestive of acute appendicitis. HOSPITAL COURSE: The patient was admitted to the surgical service for further treatment of the acute appendicitis. He elected to proceed with laparoscopic appendectomy. He was added onto the OR schedule for that day. On 05/16/24, a laparoscopic appendectomy, drainage appendiceal abscess was performed by Dr. Trejo without complication. He was found to have locally perforated appendicitis with abscess. GAB drain was placed. The patient tolerated the procedure well. He had an uncomplicated recovery course. He remained inpatient until POD #3 for IV abx. His GAB drain had scant serosanguineous drainage and was removed. On the day of discharge, he felt well and was tolerating a solid diet without nausea or vomiting, had good pain control and was ambulating without difficulty. He was hemodynamically stable and afebrile >24h. His abdomen was benign with appropriate post op tenderness and clean and intact dressings. He felt ready for discharge. He was discharged to home on 05/19/24 in stable condition on a course of PO flagyl and cipro. He is to follow up in the office in 1 week. Status at Discharge Functional status at discharge: independent ambulation Overall status at discharge: patient is progressing back to baseline Time Attestation Discharge Coordination Time (in mins): 35 Quality: Safe Use of Opioids Does Pt have an Active Cancer Diagnosis on the Problem List?: No Quality: Stroke Does the patient have a stroke diagnosis?: No Physical Exam Vital Signs: Vital Signs: Last Vital Signs Temp 96.8 F 05/19/24 06:37 Pulse 66 05/19/24 06:37 Resp 18 05/19/24 06:37 BP 142/67 H 05/19/24 06:37 Pulse Ox 96 05/19/24 06:37 O2 Del Method Room Air 05/19/24 06:37 O2 Flow Rate 2 05/17/24 03:44 BMI result Body Mass Index 28.9 Const: General: comfortable, no acute distress and alert Resp: Effort & Inspection: normal respiratory effort GI: Inspection: No distended and Yes incision (clean) Palpation (GI): Soft to palpation, Tenderness to palpation present (GI) (mild incisional) and no guarding Skin: General skin exam: no rashes or lesions noted DS: Data Data Completed and Pending Completed studies during hospitalization [Text1]: 05/16/24 14:12 Surgical [PTH] Routine Appendix, appendectomy: Acute appendicitis with periappendicitis, focal gangrenous necrosis, and focal disruption (likely perforation). Procedures Drainage of Pelvic Cavity, Percutaneous Endoscopic Approach (05/16/24) Resection of Appendix, Percutaneous Endoscopic Approach (05/16/24) Discharge Plan Discharge Anticipated Discharge Date/Time: 05/18/24 07:09 Patient Disposition: Home, Self-Care Discharge Diagnosis: Perforated acute appendicitis Referrals: Name,MD Marvin [Primary Care Provider] - 1 Week Ziggy Trejo MD [Physician] - 1 Week Discharge Medications: New hydrocodone-acetaminophen 5-325 mg tablet 1 tab PO Q4-6H PRN (Reason: pain) Qty: 30 0RF Rx Instructions: Partial Fill upon patient request. ciprofloxacin HCl [Cipro] 500 mg tablet 500 mg PO BID Qty: 14 0RF metronidazole [Flagyl] 375 mg capsule 375 mg PO BID Qty: 14 0RF Continued atorvastatin 80 mg tablet 80 mg PO DAILY metformin 1,000 mg tablet 1,000 mg PO DAILY lisinopril 10 mg tablet 10 mg PO DAILY aspirin 81 mg tablet,chewable 81 mg PO DAILY hydrochlorothiazide 25 mg tablet 25 mg PO DAILY metoprolol succinate 25 mg tablet extended release 24 hr 25 mg PO DAILY Jardiance 25 mg tablet 25 mg PO DAILY Discharge Orders: Discharge Order (Routine); Ordered 05/19/24 Ordered By: Ziggy Trejo Diet: Advance to usual diet Activity on Discharge: No heavy lifting Stand Alone Forms: Patient Portal Discharge page Print Language: Welsh Activity Restrictions/Additional Instructions: Ice to wound 20 minutes several times today and tomorrow. May shower . Remove outside dressing only. Leave Steri-Strips intact. No strenuous activities Care Plan Goals: Returned to baseline Health Concerns: No new issues Plan of Treatment: Convalescence Assessment: Stable Discharge Date/Time: 05/19/24 10:25
== END 2024-05-19 10:25 | disposition home or self-care (01) | DRG 399 ==
LOC: HO.ED 07:16 → HO.EDOVER 07:17 → HO.S3 17:27
PROVIDERS: Admitting Provider Surgery; Emergency Provider Internal Medicine; PCP Internal Medicine Geriatric Medicine; Visit Provider Surgery
PROC: 0DTJ4ZZ Resection of Appendix, Percutaneous Endoscopic Approach (ICD-10-PCS; CPT 44970; principal; 2024-05-16 13:50)
DX: K35.33 Acute appendicitis with perforation, localized peritonitis, and gangrene, with abscess (principal); I25.10 Atherosclerotic heart disease of native coronary artery without angina pectoris; Z88.0 Allergy status to penicillin; Z95.1 Presence of aortocoronary bypass graft; Z79.82 Long term (current) use of aspirin; Z79.899 Other long term (current) drug therapy
CPT/HCPCS: 36415; 71045; 74177; 80053; 82947; 83605; 83690; 85025; 85027; 88304; 93005; 97116; 97162; 97530; 99285; J1170; J2270; J2405; J2543; J2704; J2795; J3010; J7120; Q9967

== ENCOUNTER → 2024-05-16 06:02 | Outpatient (BNV) | payer MEDICARE, SELFPAY | PROVIDERS: Admitting Provider Surgery; Emergency Provider Internal Medicine; Visit Provider Internal Medicine Cardiovascular Disease | DX: R94.31 Abnormal electrocardiogram [ECG] [EKG] (principal) | CPT/HCPCS: 93010 ==

== ENCOUNTER → 2024-05-16 07:13 | Outpatient (BNV) | payer MEDICARE, SELFPAY | PROVIDERS: Admitting Provider Surgery; Emergency Provider Internal Medicine; Visit Provider Surgery | DX: K35.32 Acute appendicitis with perforation, localized peritonitis, and gangrene, without abscess (principal) | CPT/HCPCS: 44970; 99024; 99222 ==

== ENCOUNTER 2024-05-30 08:16 | Outpatient (AMB) | payer MEDICARE, SELFPAY ==
--- NOTE | 2024-05-30 08:34 | MHC.OFFVIS ---
Intake Visit Reasons: s/p Appendectomy Laparoscopic Intake Note: Patient here s/p lap appy. Reports incisions healing well. Patient c/o: no concerns. No longer taking rx meds. Continuity Director Required: No Accompanied by: Self / Same As Patient Allergies ibuprofen [From MOTRIN] Allergy (Intermediate, Verified 05/30/24 08:35) HIVES Penicillins [PENICILLINS] Allergy (Unknown, Verified 05/30/24 08:35) DOESN'T REMEMBER HPI Comments Details: Patient presents for follow-up status post laparoscopic appendectomy. He is doing quite well. He is tolerating a diet. Having regular bowel habits. He is increasing his activity level. He would like to return to work which is sedentary. He has minimal incisional discomfort. [facility] Medical History (Updated 05/27/24 @ 00:01 by Moe Pena) Hyperlipidemia Hypertension Coronary artery disease Surgical History (Updated 05/30/24 @ 08:52 by Ziggy Trejo MD) History of laparoscopic appendectomy (05/16/24) S/P CABG x 4 Social History Household Members: None Housing: Apartment Patient Tobacco Use Status: Never used Tobacco Second Hand Smoke Exposure: No service: No Physical Exam GI Other: Abdomen is soft. All wounds clean dry and intact healing very well Assessment & Plan Assessment & Plan (1) Status post laparoscopic appendectomy: Code(s): Z90.49 - Acquired absence of other specified parts of digestive tract Category: Surgical Plan Patient has been given local instructions, and will otherwise follow-up p.r.n.. All questions answered. Medications: Discontinued ciprofloxacin HCl (Cipro) Discontinued Reason: Patient Completed Course 500 mg PO BID 14 tabs 0RF hydrocodone-acetaminophen 5-325 mg Partial Fill upon patient request. Discontinued Reason: Patient no longer taking 1 tab PO Q4-6H PRN 30 tabs 0RF pain Coding Level of Care Code Global (78486) Diagnoses Status post laparoscopic appendectomy Z90.49
== END 2024-05-30 08:45 | disposition home or self-care (01) ==
PROVIDERS: PCP Internal Medicine Geriatric Medicine; Visit Provider Surgery
DX: Z90.49 Acquired absence of other specified parts of digestive tract (principal)
CPT/HCPCS: 99024

== ENCOUNTER → 2024-05-30 08:16 | Outpatient (BNVA) | payer MEDICARE, SELFPAY | PROVIDERS: PCP Internal Medicine Geriatric Medicine; Visit Provider Surgery | DX: Z09 Encounter for follow-up examination after completed treatment for conditions other than malignant neoplasm (principal); Z90.49 Acquired absence of other specified parts of digestive tract | CPT/HCPCS: 99212 ==

== ENCOUNTER 2024-08-12 01:30 | Emergency (ER) | payer MEDICARE, SELFPAY ==
[2024-08-12 01:40] VITALS: BP 148/56; PULSE 64; RESP 18; TEMP 36.3; O2SAT 97; BMI 30.2
--- NOTE | 2024-08-12 03:16 | PC.NURSE ---
Patient presents to ED for evaluation of red, itchy rash to b/l lower legs extending above b/l knees. Patient reports the rash could be d/t flea bites. Patient's son has a dog. Patient also reports discomfort with urination. Urine specimen collected via clean catch and sent to lab. Patient oriented to ED room, call sotomayor placed within patient's reach.
[2024-08-12 03:31] LABS: Color Urine Yellow; Glucose Urine UA >=1000 mg/dL (Negative); Leukocyte Esterase Urine Negative (Negative); Nitrite Urine Negative (Negative); Specific Gravity - Urine 1.025 (1.005-1.025); UMIC TRIGGER UACC YES; Urine Blood Negative (Negative); Urine Ketones Negative (Negative); Urine Protein Negative (Neg-Trace)
[2024-08-12 03:32] LABS: Appearance Urine Clear
[2024-08-12 03:38] LABS: Bacteria Urine None Seen (None Seen); Hyaline Casts Urine 0-2 /LPF (0-2); RBC Urine 0-2 /HPF (0-2); Squamous Epithelial Cell Urine 0-2 /HPF (0-2); WBC Urine 0-5 /HPF (0-5)
[2024-08-12 04:31] VITALS: BP 146/69; PULSE 57; RESP 18; TEMP 36.5; O2SAT 98
--- NOTE | 2024-08-12 05:11 | PC.NURSE ---
Per DR. James, lactic acid does not need to be drawn at this time.
[2024-08-12 05:28] LABS: Basophils Percent Auto 0.4 % (0-2); Eosinophils Absolute Auto 0.8 X10*3/uL (0.0-0.4); Eosinophils Percent Auto 10.7 % (0-4); Hematocrit 32.7 % (42.0-52.0); Imm Gran Abs Auto 0.02 X10*3/uL (0.00-0.03); Imm Gran Pct Auto 0.3 % (0.0-0.4); Lymphocytes Absolute Auto 2.5 X10*3/uL (1.2-4.9); Lymphocytes Percent Auto 32.9 % (20-40); MANUAL DIFF FLAG NO; Mean Corpuscular HGB Conc 33.6 g/dl (31.0-36.0); Mean Corpuscular Hemoglobin 30.1 pg (27.0-33.0); Mean Corpuscular Volume 89.3 fL (80.0-98.0); Mean Platelet Volume 10.5 fL (9.4-12.4); Monocytes Absolute Auto 0.9 X10*3/uL (0.1-1.2); Monocytes Percent Auto 11.9 % (2-11); Neutrophils Absolute Auto 3.4 x10*3/uL (2.0-8.3); Neutrophils Percent Auto 43.8 % (45-73); Platelet Count 156 X10*3/uL (160-400); Red Blood Count 3.66 X10*6/uL (4.60-5.80); Red Cell Distribution Width 12.8 % (11.0-16.0); White Blood Count 7.7 X10*3/uL (4.8-10.8)
[2024-08-12] MEDS: ceFAZolin Sodium 3 GM in 0.9 % Sodium Chloride 100 ML IV (05:33)
--- NOTE | 2024-08-12 05:37 | PC.NURSE ---
20 G IV line established in R hand. Labs drawn and sent to lab, patient medicated per DEC.
[2024-08-12 05:42] LABS: Anion Gap 15 (12-20); Blood Urea Nitrogen 44 mg/dL (9-16); Calcium 8.6 mg/dL (8.4-10.2); Carbon Dioxide 21 mmol/L (22-29); Chloride 107 mmol/L (96-108); Creatinine Clr Calc Pharmacy 34.6; Estimated Glomerular Filt Rate 35; Glucose Random 143 mg/dL (60-115); Potassium 4.4 mmol/L (3.3-5.1); Sodium 139 mmol/L (135-145)
--- NOTE | 2024-08-12 06:34 | ED_ITS ---
HPI - Skin/Abscess/Foreign Bdy General Chief complaint: Skin/Abscess/Foreign Body Stated complaint: insect bites poss. infection Time Seen by Provider: 08/12/24 04:44 Source: patient Mode of arrival: ambulatory Limitations: no limitations History of Present Illness ED Provider: Dr. James HPI narrative: Patient is a 73yo diabetic, HTN, high cholesterol. Patient initially had bumps on his legs and now with rash that has spread all over them, erythema. Patient denies fever MD complaint: rash Onset (ago): day(s) Related Data Home Medications ?Medication ?Instructions ?Recorded ?Confirmed aspirin 81 mg chewable tablet 81 mg PO DAILY 05/16/24 05/30/24 atorvastatin 80 mg tablet 80 mg PO DAILY 05/16/24 05/30/24 empagliflozin 25 mg tablet 25 mg PO DAILY 05/16/24 05/30/24 (Jardiance) hydrochlorothiazide 25 mg tablet 25 mg PO DAILY 05/16/24 05/30/24 lisinopril 10 mg tablet 10 mg PO DAILY 05/16/24 05/30/24 metformin 1,000 mg tablet 1,000 mg PO DAILY 05/16/24 05/30/24 metoprolol succinate 25 mg 25 mg PO DAILY 05/16/24 05/30/24 tablet,extended release 24 hr Previous Rx's ?Medication ?Instructions ?Recorded metronidazole 375 mg capsule 375 mg PO BID #14 caps 05/18/24 (Flagyl) cephalexin 500 mg capsule 500 mg PO Q6H 10 days #40 caps 08/12/24 Allergies Allergy/AdvReac Type Severity Reaction Status Date / Time ibuprofen [From MOTRIN] Allergy Intermediate HIVES Verified 08/12/24 01:41 Penicillins [PENICILLINS] Allergy Unknown DOESN'T Verified 08/12/24 01:41 REMEMBER Review of Systems 2 Review of Systems: Yes all other systems are reviewed and are negative Neurologic: Denies Sensory deficit (Neuro) [facility] Past Medical History Medical History Hyperlipidemia Hypertension Coronary artery disease Surgical History History of laparoscopic appendectomy (05/16/24) S/P CABG x 4 Social History Social History Household Members: None Housing: Apartment Patient Tobacco Use Status: Never used Tobacco Smoked in Last 30 Days: No Second Hand Smoke Exposure: No Use of substances other than those prescribed or required for medical reasons: No Advance Directives: No Advance Directives Information Provided: No Do you have a plan to hurt others: No Plan service: No Physical Exam 2 Vital Signs: Vital Signs: Last Vital Signs Temp 97.9 F 08/12/24 06:35 Pulse 54 08/12/24 06:35 Resp 17 08/12/24 06:35 BP 145/69 H 08/12/24 06:35 Pulse Ox 96 08/12/24 06:35 O2 Del Method Room Air 08/12/24 06:35 BMI result Body Mass Index 30.2 Const: General: healthy appearing Nutritional Appearance: average body habitus Orientation/consciousness: oriented to person and patient oriented x3 Limitations: no limitations HEENT: Head: Yes normal to inspection Ears: external ears normal General nose exam: Normal external nose present Mouth: Normal oral and palatal mucosa present and oropharynx normal Throat: Yes posterior oropharynx normal Eyes: General: appearance normal, both eyes and all related structures Neck: Other: supple Neck: Yes normal visual inspection Chest: Chest palpation & inspection: normal inspection of the chest Resp: Auscultation: clear to auscultation bilaterally Cardio: Jugular venous distension: no JVD Rate: regular rate Rhythm: r egular rhythm Heart sounds: S1 normal heart sound present and S2 normal heart sound present GI: Inspection: Yes normal to inspection Palpation (GI): Soft to palpation, nontender and No hepatosplenomegaly present Auscultation: normal bowel sounds : General: Yes no CVA tenderness Back/Spine/Pelvis: Back: no CVA tenderness Skin: Other: confluent red warm rash to both legs with slight swelling Neuro: General: oriented to person and patient oriented x3 Cranial nerves: Yes CN's II-XII intact bilaterally Motor exam (neuro): 5/5 motor strength present throughout Sensory Exam: No Sensory deficit (Neuro) Extrem: General: Yes normal to inspection Psych: Appearance: grossly normal Course Reevaluation(s) Reevaluation #1: patient with likely cellulitis will treat with oral abx and dc home Time: 06:39 Medications Administered Discontinued Medications Generic Name Dose Route Start Last Admin Trade Name Freq PRN Reason Stop Dose Admin Cefazolin Sodium 3 gm/ Sodium 100 mls @ 200 mls/hr 08/12/24 04:46 08/12/24 06:10 Chloride IV 08/12/24 05:15 Infused ONCE ONE Infusion Medical Decision Making Differential Diagnosis Differential Diagnoses: The differential diagnosis associated with the presentation includes (cellulitis, petichiea, erythema nodorsum) Admission/Observation Consideration of admission/observation: Escalation of care including admission/observation considered (upon arrival patient considered for admission) Lab Data 08/12/24 05:22 08/12/24 05:22 Labs: Lab Results 08/12/24 08/12/24 Range/Units 03:20 05:22 WBC 7.7 (4.8-10.8) X10*3/uL RBC 3.66 L (4.60-5.80) X10*6/uL Hgb 11.0 L (14.0-18.0) g/dl Hct 32.7 L (42.0-52.0) % MCV 89.3 (80.0-98.0) fL MCH 30.1 (27.0-33.0) pg MCHC 33.6 (31.0-36.0) g/dl RDW 12.8 (11.0-16.0) % Plt Count 156 L (160-400) X10*3/uL MPV 10.5 (9.4-12.4) fL Immature Gran % (Auto) 0.3 (0.0-0.4) % Neut % (Auto) 43.8 L (45-73) % Lymph % (Auto) 32.9 (20-40) % Borden % (Auto) 11.9 H (2-11) % Eos % (Auto) 10.7 H (0-4) % Baso % (Auto) 0.4 (0-2) % Lymph # (Auto) 2.5 (1.2-4.9) X10*3/uL Borden # (Auto) 0.9 (0.1-1.2) X10*3/uL Eos # (Auto) 0.8 H (0.0-0.4) X10*3/uL Baso # (Auto) 0.0 (0.0-0.2) X10*3/uL Abs Immat Gran (auto) 0.02 (0.00-0.03) X10*3/uL Absolute Neuts (auto) 3.4 (2.0-8.3) x10*3/uL Absolute Nucleated RBC 0.000 (0.0-0.012) X10*3/uL Nucleated RBC % (auto) 0.0 (0.0-0.2) /100WBC Sodium 139 (135-145) mmol/L Potassium 4.4 (3.3-5.1) mmol/L Chloride 107 (96-108) mmol/L Carbon Dioxide 21 L (22-29) mmol/L Anion Gap 15 (12-20) BUN 44 H (9-16) mg/dL Creatinine 1.91 H (0.5-1.4) mg/dL Estim Creat Clear Calc 34.6 Estimated GFR 35 Random Glucose 143 H (60-115) mg/dL Calcium 8.6 D (8.4-10.2) mg/dL Urine Color Yellow Urine Appearance Clear Urine pH 6.0 (5.0-9.0) Ur Specific Cougar 1.025 (1.005-1.025) Urine Protein Negative (Neg-Trace) mg/dL Urine Glucose (UA) >=1000 H (Negative) mg/dL Urine Ketones Negative (Negative) mg/dL Urine Blood Negative (Negative) Urine Nitrite Negative (Negative) Ur Leukocyte Esterase Negative (Negative) Urine RBC 0-2 (0-2) /HPF Urine WBC 0-5 (0-5) /HPF Ur Squamous Epith Cells 0-2 (0-2) /HPF Urine Bacteria None Seen (None Seen) Hyaline Casts 0-2 (0-2) /LPF Chronic Conditions Patient?s care impacted by: Diabetes and Hypertension Discharge Plan Discharge Clinical Impression: Cellulitis Patient Disposition: Home, Self-Care Instructions: Cellulitis (ED), Warm Compress or Soak (ED) Prescriptions: New cephalexin 500 mg capsule 500 mg PO Q6H 10 Days Qty: 40 0RF No Action atorvastatin 80 mg tablet 80 mg PO DAILY metformin 1,000 mg tablet 1,000 mg PO DAILY lisinopril 10 mg tablet 10 mg PO DAILY aspirin 81 mg tablet,chewable 81 mg PO DAILY hydrochlorothiazide 25 mg tablet 25 mg PO DAILY metoprolol succinate 25 mg tablet extended release 24 hr 25 mg PO DAILY Jardiance 25 mg tablet 25 mg PO DAILY metronidazole [Flagyl] 375 mg capsule 375 mg PO BID Qty: 14 0RF Referrals: Physician,Unknown J [Primary Care Provider] - 5 days Print Language: Syriac
[2024-08-12 06:35] VITALS: BP 145/69; PULSE 54; RESP 17; TEMP 36.6; O2SAT 96
[2024-08-12 06:51] VITALS: BP 145/69; PULSE 54; RESP 17; TEMP 36.6; O2SAT 96
== END 2024-08-12 06:52 | disposition home or self-care (01) ==
PROVIDERS: Emergency Provider Emergency Medicine
DX: L03.115 Cellulitis of right lower limb (principal); L03.116 Cellulitis of left lower limb; I10 Essential (primary) hypertension; E11.9 Type 2 diabetes mellitus without complications; Z79.84 Long term (current) use of oral hypoglycemic drugs; Z79.899 Other long term (current) drug therapy
CPT/HCPCS: 36415; 80048; 81001; 85025; 87040; 96365; 99284; J0690

== ENCOUNTER 2024-08-15 09:53 | Emergency (ER) | payer MEDICARE, SELFPAY ==
[2024-08-15 10:03] VITALS: BP 133/70; PULSE 56; RESP 16; TEMP 36.4; O2SAT 99; BMI 30.7
[2024-08-15 10:52] VITALS: BP 137/59; PULSE 61; RESP 18; TEMP 37.1; O2SAT 96
[2024-08-15 11:45] LABS: MANUAL DIFF FLAG NO
--- NOTE | 2024-08-15 11:45 | ED.SKABFB ---
HPI - Skin/Abscess/Foreign Bdy General Chief complaint: Skin/Abscess/Foreign Body Stated complaint: rash follow up Time Seen by Provider: 08/15/24 10:49 Source: patient, RN notes reviewed and old records reviewed Mode of arrival: ambulatory History of Present Illness ED Provider: Michaelle Smith PA-C HPI narrative: 73-year-old male with a past medical history of CAD, HTN, HLD, presenting to the ED complaining of rash to upper extremities noted yesterday. Patient was seen and treated in our ED on 08/12 with rash to bilateral LE, diagnosed with cellulitis, has been taking Keflex with improvement, however noted rash spread to upper extremities. States lower extremity rash is much improved. Reports intermittent pruritus to rash which she medicates with Benadryl. Denies fever, chills, new exposures including soap, lotion, detergent, hiking, known tick or insect bites, SOB, new medication Related Data Home Medications ?Medication ?Instructions ?Recorded ?Confirmed aspirin 81 mg chewable tablet 81 mg PO DAILY 05/16/24 05/30/24 atorvastatin 80 mg tablet 80 mg PO DAILY 05/16/24 05/30/24 empagliflozin 25 mg tablet 25 mg PO DAILY 05/16/24 05/30/24 (Jardiance) hydrochlorothiazide 25 mg tablet 25 mg PO DAILY 05/16/24 05/30/24 lisinopril 10 mg tablet 10 mg PO DAILY 05/16/24 05/30/24 metformin 1,000 mg tablet 1,000 mg PO DAILY 05/16/24 05/30/24 metoprolol succinate 25 mg 25 mg PO DAILY 05/16/24 05/30/24 tablet,extended release 24 hr Previous Rx's ?Medication ?Instructions ?Recorded metronidazole 375 mg capsule 375 mg PO BID #14 caps 05/18/24 (Flagyl) cephalexin 500 mg capsule 500 mg PO Q6H 10 days #40 caps 08/12/24 hydrocortisone 1 % topical cream 1 appl topical BID PRN rash #28.35 08/15/24 (Anti-Itch (hydrocortisone)) grams Allergies Allergy/AdvReac Type Severity Reaction Status Date / Time ibuprofen [From MOTRIN] Allergy Intermediate HIVES Verified 08/15/24 10:04 Penicillins [PENICILLINS] Allergy Unknown DOESN'T Verified 08/15/24 10:04 REMEMBER Review of Systems Review of Systems: Yes all other systems are reviewed and are negative Constitutional: Constitutional: Reports as per [facility] Past Medical History Attestation statement: The following information was validated with the patient. Source: old records reviewed Medical History Hyperlipidemia Hypertension Coronary artery disease Surgical History History of laparoscopic appendectomy (05/16/24) S/P CABG x 4 Social History Social History Household Members: None Housing: Apartment Patient Tobacco Use Status: Never used Tobacco Second Hand Smoke Exposure: No Advance Directives: No Advance Directives Information Provided: Yes service: No Physical Exam Vital Signs: Vital Signs: Last Vital Signs Temp 98.4 F 08/15/24 11:49 Pulse 57 08/15/24 11:49 Resp 15 08/15/24 11:49 BP 156/69 H 08/15/24 11:49 Pulse Ox 100 08/15/24 11:49 O2 Del Method Room Air 08/15/24 11:49 BMI result Body Mass Index 30.7 Const: General: cooperative, healthy appearing and no acute distress Orientation/consciousness: patient oriented x3 Limitations: no limitations HEENT: Head: Yes normal to inspection and Yes atraumatic Ears: hearing grossly normal bilaterally General nose exam: Normal external nose present Face and sinus: Yes normal facial exam Mouth: Normal oral and palatal mucosa present and no drooling Throat: Yes posterior oropharynx normal, Yes uvula midline, No peritonsillar mass, No uvula laterally displaced and No uvular edema Eyes: General: appearance normal, both eyes and all related structures EOM: EOMs intact bilaterally Neck: Neck: Yes normal visual inspection and Yes no meningeal signs Resp: Effort & Inspection: normal respiratory effort, no respiratory distress and no stridor Auscultation: clear to auscultation bilaterally Cardio: Rate: regular rate Skin: Other: Please refer to images above. Erythematous well-demarcated rash noted to bilateral LE. Blanchable. No sloughing. + faint erythematous rash noted to bilateral upper extremities as depicted. No palm/sole involvement. No mucous membrane involvement Wounds: no wounds Neuro: General: patient oriented x3, tone normal and no meningeal signs Cranial nerves: Yes CN's II-XII intact bilaterally Gait exam (Neuro): Normal gait present Extrem: General: Yes normal to inspection Course Course Course Narrative: -1253--no leukocytosis. ESR mildly elevated -renal function WNL, much improved from 08/12/2024 Results discussed with patient including worrisome signs and symptoms and strict return precautions, and when to return to the emergency department. They verbalized understanding and feel safe for discharge at this time. Medical Decision Making Medical Decision Making [facility] Narrative: 73-year-old male with a past medical history of CAD, HTN, HLD, presenting to the ED complaining of rash to upper extremities noted yesterday. Patient was seen and treated in our ED on 08/12 with rash to bilateral LE, diagnosed with cellulitis, has been taking Keflex with improvement. On exam vital signs stable, NAD, nontoxic appearing, physical exam as noted above. Please refer to images. No palm/sole or mucous membrane involvement. No sloughing. Denies new medications other than previously prescribed Keflex which he reports is improving lower extremity rash. Labs reviewed from 08/12 & patient noted to have JOEL. Low suspicion for SJS/TENs Plan: Repeat labs to check kidney function, topical hydrocortisone, dermatology follow-up Please refer to course for remaining clinical decision making, interpretation of labs/imaging results, and discussions with consultants and/or family members. Differential Diagnosis Differential Diagnoses: The differential diagnosis associated with the presentation includes As above Admission/Observation Consideration of admission/observation: Escalation of care including admission/observation considered Lab Data [facility] Lab Attestation statement: I reviewed the patient's lab results. 08/15/24 11:39 08/15/24 11:39 Labs: Lab Results 08/15/24 Range/Units 11:39 WBC 8.5 (4.8-10.8) X10*3/uL RBC 4.41 L D (4.60-5.80) X10*6/uL Hgb 13.5 L D (14.0-18.0) g/dl Hct 39.6 L D (42.0-52.0) % MCV 89.8 (80.0-98.0) fL MCH 30.6 (27.0-33.0) pg MCHC 34.1 (31.0-36.0) g/dl RDW 12.6 (11.0-16.0) % Plt Count 209 D (160-400) X10*3/uL MPV 10.5 (9.4-12.4) fL Immature Gran % (Auto) 0.4 (0.0-0.4) % Neut % (Auto) 50.5 (45-73) % Lymph % (Auto) 30.6 (20-40) % Reynolds % (Auto) 8.8 (2-11) % Eos % (Auto) 9.2 H (0-4) % Baso % (Auto) 0.5 (0-2) % Lymph # (Auto) 2.6 (1.2-4.9) X10*3/uL Reynolds # (Auto) 0.8 (0.1-1.2) X10*3/uL Eos # (Auto) 0.8 H (0.0-0.4) X10*3/uL Baso # (Auto) 0.0 (0.0-0.2) X10*3/uL Abs Immat Gran (auto) 0.03 (0.00-0.03) X10*3/uL Absolute Neuts (auto) 4.3 (2.0-8.3) x10*3/uL Absolute Nucleated RBC 0.000 (0.0-0.012) X10*3/uL Nucleated RBC % (auto) 0.0 (0.0-0.2) /100WBC ESR 23 H (0-15) MM/HR PT 10.9 (10.9-12.4) SEC INR 0.9 (0.9-1.1) APTT 33.4 (26.0-36.8) SEC Sodium 140 (135-145) mmol/L Potassium 4.6 (3.3-5.1) mmol/L Chloride 102 (96-108) mmol/L Carbon Dioxide 25 (22-29) mmol/L Anion Gap 18 (12-20) BUN 25 H (9-16) mg/dL Creatinine 1.28 (0.5-1.4) mg/dL Estim Creat Clear Calc 52.1 Estimated GFR 55 Random Glucose 137 H (60-115) mg/dL Calcium 10.4 H D (8.4-10.2) mg/dL Total Bilirubin 0.9 (0.0-1.0) mg/dL Direct Bilirubin 0.3 (0.0-0.5) mg/dL AST 31 (5-37) U/L ALT 38 (0-40) U/L Alkaline Phosphatase 107 (39-117) U/L C-Reactive Protein 0.18 (< or = 0.50) mg/dL Total Protein 8.1 H (6.5-8.0) g/dL Albumin 4.6 (3.5-5.0) g/dL Radiology Impression Discussion of test interpretation with radiology: I have reviewed the radiologist's reading. External Record Review External record reviewed: Inpatient record, Office record, Outpatient record, Prior outpatient labs, Prior outpatient radiology, Primary care record and Outside ED record Tests considered The following testing was considered but not selected: As above Prescription Management I considered prescription management with: Antibiotic Chronic Conditions Patient?s care impacted by: Other Social Determinants Patient?s care significantly limited by Social Determinants of Health including: Other Social Determinant of Health Discharge Plan Discharge Clinical Impression: Rash Patient Disposition: Left W/O Completing Treatment Additional Instructions: You are leaving prior to completing treatment. Your blood work has not yet resolved. Continue taking previously prescribed antibiotic until completion In addition apply topical hydrocortisone cream which is a topical steroid to your rash only. Avoid application, to your face, hands, feet, and genital region as potentially can discolored your skin You need to follow-up with a swimming pool service technician If your rash spreads or worsens, you have fever, any difficulty breathing or swallowing or shortness of breath return to the ED immediately Last time you were here your blood work showed acute kidney injury. We were checking this today. Please have close follow-up with your doctor [facility] [address], [place] [address] ? Prescriptions: New hydrocortisone [Anti-Itch (HC)] 1 % cream 1 appl topical BID PRN (Reason: rash) Qty: 28.35 0RF No Action atorvastatin 80 mg tablet 80 mg PO DAILY metformin 1,000 mg tablet 1,000 mg PO DAILY lisinopril 10 mg tablet 10 mg PO DAILY aspirin 81 mg tablet,chewable 81 mg PO DAILY hydrochlorothiazide 25 mg tablet 25 mg PO DAILY metoprolol succinate 25 mg tablet extended release 24 hr 25 mg PO DAILY Jardiance 25 mg tablet 25 mg PO DAILY metronidazole [Flagyl] 375 mg capsule 375 mg PO BID Qty: 14 0RF cephalexin 500 mg capsule 500 mg PO Q6H 10 Days Qty: 40 0RF
[2024-08-15 11:49] VITALS: BP 156/69; PULSE 57; RESP 15; TEMP 36.9; O2SAT 100
[2024-08-15 11:50] LABS: Basophils Percent Auto 0.5 % (0-2); Eosinophils Absolute Auto 0.8 X10*3/uL (0.0-0.4); Eosinophils Percent Auto 9.2 % (0-4); Hematocrit 39.6 % (42.0-52.0); Hemoglobin 13.5 g/dl (14.0-18.0); Imm Gran Abs Auto 0.03 X10*3/uL (0.00-0.03); Imm Gran Pct Auto 0.4 % (0.0-0.4); Lymphocytes Absolute Auto 2.6 X10*3/uL (1.2-4.9); Lymphocytes Percent Auto 30.6 % (20-40); Mean Corpuscular HGB Conc 34.1 g/dl (31.0-36.0); Mean Corpuscular Hemoglobin 30.6 pg (27.0-33.0); Mean Corpuscular Volume 89.8 fL (80.0-98.0); Mean Platelet Volume 10.5 fL (9.4-12.4); Monocytes Absolute Auto 0.8 X10*3/uL (0.1-1.2); Monocytes Percent Auto 8.8 % (2-11); Neutrophils Absolute Auto 4.3 x10*3/uL (2.0-8.3); Neutrophils Percent Auto 50.5 % (45-73); Platelet Count 209 X10*3/uL (160-400); Red Blood Count 4.41 X10*6/uL (4.60-5.80); Red Cell Distribution Width 12.6 % (11.0-16.0); White Blood Count 8.5 X10*3/uL (4.8-10.8)
[2024-08-15 11:55] LABS: INTERNATIONAL NORM RATIO 0.9 (0.9-1.1); Prothrombin Time 10.9 SEC (10.9-12.4)
[2024-08-15 11:58] LABS: Partial Thromboplastin Time 33.4 SEC (26.0-36.8)
[2024-08-15 12:31] LABS: Alanine Aminotransferase 38 U/L (0-40); Albumin Level 4.6 g/dL (3.5-5.0); Alkaline Phosphatase 107 U/L (39-117); Anion Gap 18 (12-20); Aspartate Amino Transferase 31 U/L (5-37); Bilirubin Direct 0.3 mg/dL (0.0-0.5); Bilirubin Total 0.9 mg/dL (0.0-1.0); Blood Urea Nitrogen 25 mg/dL (9-16); C Reactive Protein 0.18 mg/dL (< or = 0.50); Calcium 10.4 mg/dL (8.4-10.2); Carbon Dioxide 25 mmol/L (22-29); Chloride 102 mmol/L (96-108); Creatinine Clr Calc Pharmacy 52.1; Erythrocyte Sedimentation Rate 23 MM/HR (0-15); Estimated Glomerular Filt Rate 55; Glucose Random 137 mg/dL (60-115); Potassium 4.6 mmol/L (3.3-5.1); Sodium 140 mmol/L (135-145); Total Protein 8.1 g/dL (6.5-8.0)
[2024-08-15 13:07] VITALS: BP 156/69; PULSE 57; RESP 15; TEMP 36.9; O2SAT 100
== END 2024-08-15 13:07 | disposition home or self-care (01) ==
PROVIDERS: Physician Assistant; Emergency Provider Student in an Organized Health Care Education/Training Program
DX: R21 Rash and other nonspecific skin eruption (principal); I10 Essential (primary) hypertension; I25.10 Atherosclerotic heart disease of native coronary artery without angina pectoris; E78.5 Hyperlipidemia, unspecified
CPT/HCPCS: 36415; 80048; 80076; 85025; 85610; 85652; 85730; 86140; 99283

== ENCOUNTER 2025-05-21 16:07 | Emergency (ER) | payer MEDICARE, SELFPAY ==
--- NOTE | ~2025-05-21 | XR_ITS ---
CLINICAL HISTORY: pain, injury 2 view right tibia-fibula Comparison: None provided Findings No fractures or dislocations. No joint effusion. No significant arthritic change. Surgical clips in soft tissues at the knee medially. IMPRESSION: 1. No acute findings. This document has been electronically signed by: Lisa Melendrez MD on 05/21/2025 17:19:51
[2025-05-21 16:32] VITALS: BP 157/73; PULSE 55; RESP 16; TEMP 36.4; O2SAT 97; BMI 29.6
--- NOTE | 2025-05-21 16:33 | ED_ITS ---
HPI - General Adult General Chief complaint: Extremity Injury, Lower Stated complaint: right leg pain Time Seen by Provider: 05/21/25 18:01 Source: patient Mode of arrival: ambulatory Limitations: no limitations History of Present Illness ED Provider: Ingrid Fam PA-C HPI narrative: Patient is a 74 year old assigned male at with a history of HTN presenting to the emergency department today with right leg pain. Patient states that 2 days ago he tripped going up the stairs and hit his right leg on the stair. Patient denies any head strike with the incident or loss of consciousness. Patient denies any other complaints at this time. Relieving factors: none Exacerbating factors: none Associated symptoms: denies other symptoms Treatments prior to arrival: none Related Data Home Medications ?Medication ?Instructions ?Recorded ?Confirmed aspirin 81 mg chewable tablet 81 mg PO DAILY 05/16/24 05/30/24 atorvastatin 80 mg tablet 80 mg PO DAILY 05/16/2405/12 empagliflozin 25 mg tablet 25 mg PO DAILY 05/16/24 (Jardiance) hydrochlorothiazide 25 mg tablet 25 mg PO DAILY 05/30/24 lisinopril 10 mg tablet 10 mg PO DAILY 05/16/2405/12 metformin 1,000 mg tablet 1,000 mg PO DAILY 05/16/24 0 05/30/24 metoprolol succinate 25 mg 25 mg PO DAILY 05/16/24 tablet,extended release 24 hr Previous Rx's ?Medication ?Instructions ?Recorded metronidazole 375 mg capsule 375 mg PO BID #14 caps (Flagyl) cephalexin 500 mg capsule 500 mg PO Q6H 10 days #40 ca ps 08/12/24 hydrocortisone 1 % topical cream 1 appl topical BID PA N rash #28.35 08/15/24 (Anti-Itch (hydrocortisone)) grams Allergies Allergy/AdvReac Type Severity Reaction Status Date / Time No Known Allergies Allergy Verified 05/21/25 16:33 Review of Systems Constitutional: Constitutional: Reports as per HPI Eyes: Eyes: Reports as per HPI ENT: Reports as per HPI Cardiovascular: Cardiovascular: Reports as per HPI Respiratory: Respiratory: Reports as per HPI Gastrointestinal: Gastrointestinal: Reports as per HPI Genitourinary: Genitourinary: Reports as per HPI Musculoskeletal: Comments: right lower leg pain Integumentary/Breasts: Skin/Breast: Reports as per HPI Neurologic: Reports as per HPI Psychiatric: Psychiatric: Reports as per HPI Endocrine: Endocrine: Reports as per HPI Hematologic/Lymphatic: Hematologic/Lymphatic: Reports as per HPI Allergic/Immunologic: Allergic/Immunologic: Reports as per HPI [facility] Past Medical History Attestation statement: The following information was validated with the patient. Source: old records reviewed and nursing notes reviewed Medical History Hyperlipidemia Hypertension Coronary artery disease Surgical History History of laparoscopic appendectomy (05/16/24) S/P CABG x 4 Social History Social History Household Members: None Housing: Apartment Patient Tobacco Use Status: Never used Tobacco Second Hand Smoke Exposure: No Advance Directives: Yes Advance Directives Information Provided: No Advance Directives on File: No Do you have a plan to hurt others: No Plan service: No Physical Exam ED Vital Signs: Vital Signs - 24 hr 05/21/25 16:32 05/21/25 18:10 Temperature 97.5 F 97.5 F Pulse Rate 55 55 Respiratory Rate 16 16 Blood Pressure 157/73 H 157/73 H Pulse Oximetry 97 97 Oxygen Delivery Method Room Air Room Air BMI result Body Mass Index 29.6 Const General: cooperative, no acute distress, alert and awake Nutritional Appearance: well nourished Orientation/consciousness: patient oriented x3 HENMT Head: Yes normal to inspection and Yes atraumatic Ears: hearing grossly normal bilaterally and external ears normal General nose exam: Normal external nose present, no nasal discharge noted and no epistaxis Face and sinus: Yes normal facial exam, No abrasion and No laceration Mouth: Normal oral and palatal mucosa present, no drooling and no muffled voice Eyes General: appearance normal, both eyes and all related structures Periorbital: periorbital findings normal Eyelids: Yes eyelids normal Conjunctivae: conjunctivae normal Pupils: Equal, round and reactive pupils present EOM: EOMs intact bilaterally Neck Neck: Yes normal visual inspection and Yes full ROM Resp Effort & Inspection: normal respiratory effort and able to speak in complete sentences Neuro General: patient oriented x3, moves all extremities and CN's II-XI intact bilaterally Cranial nerves: Yes Equal, round and reactive pupils present Cognition (Neuro): normal cognition Extrem Other: bruising in various stages of healing to the medial aspect of the right lower leg General: Yes full ROM and Yes capillary refill normal Psych Appearance: grossly normal Mental Status: mental status grossly normal Affect: normal affect Attitude: cooperative Thought process: Normal thought process present Thought content: Normal thought content present Insight: Good insight present (Psych) Course Course Course Narrative: Rapid medical examination performed in triage by Ingrid Fam PA-C. Patient is a 74 year old assigned male at presenting to the emergency department with right lower leg pain after a fall. Detailed physical exam and review of systems are deferred to the mosaicist. Imaging ordered. Patient placed back in the waiting room pending room availability and results. Medical Decision Making Medical Decision Making [facility] Narrative: Patient is a 74 year old assigned male at with a history of HTN presenting to the emergency department today with right leg pain. Patient's physical exam showed bruising to the anterior medial right leg but was otherwise unremarkable. Compartments soft. ROM + PMS intact. Patient's right tib fib x-ray showed no acute process. I explained my physical exam findings as well as all test results to the patient. I answered all questions asked by the patient. I stressed the importance of the patient taking his medication as directed (either prescribed or as the over the counter packaging recommends). I stressed the importance of the patient following up with his primary care provider. I stressed the importance of the patient returning to the emergency department immediately if his symptoms were to worsen or if he were to develop any dizziness, shortness of breath, difficulty breathing, chest pain, blurry vision, loss of vision, nausea, vomiting, abdominal pain, fever, chills, back pain, or any other complaints. Patient verbalized agreement and understanding with this treatment plan and discharge. Differential Diagnosis Differential Diagnoses: The differential diagnosis associated with the presentation includes Right lower leg contusion Right tib fracture Right fib fracture Right lower leg pain Admission/Observation Consideration of admission/observation: Escalation of care including admission/observation considered Patient would have been admitted to the hospital had his work up had any findings where hospital admission was appropriate and his clinical presentation warranted hospital admission. Independent Interpretation I performed an independent interpretation of an: Plain X-Ray Interpretation: My interpretation is in agreement with the radiologist's impression of this imaging study. CLINICAL HISTORY: pain, injury 2 view right tibia-fibula Comparison: None provided Findings No fractures or dislocations. No joint effusion. No significant arthritic change. Surgical clips in soft tissues at the knee medially. IMPRESSION: 1. No acute findings. This document has been electronically signed by: Lisa Melendrez MD on 05/21/2025 17:19:51 Dictated By: Lisa Melendrez MD Signed By: Electronically signed by Lisa Melendrez MD 05/21/25 0160 Radiology Impression Discussion of test interpretation with radiology: I have reviewed the radiologist's reading. Discharge Plan Discharge Clinical Impression: Contusion of leg Patient Disposition: Home, Self-Care Instructions: Contusion in Adults (ED) Additional Instructions: IF you are prescribed medications and/or you are taking over the counter medications - it is very important you continue to do so as prescribed / directed unless told otherwise. Follow up with your primary care provider. Return to the emergency department immediately if your symptoms worsen or if you develop any numbness, tingling, dizziness, shortness of breath, difficulty breathing, chest pain, blurry vision, loss of vision, nausea, vomiting, abdominal pain, fever, chills, back pain, or any other complaints. Please see the information below about our Patient Portal. If you are not yet enrolled in the [facility] Patient Portal, you will receive an enrollment email invitation following your visit to any [facility] setting. You may also self-enroll in the Patient Portal by visiting our website: [email or web address] The following information is required to access the Patient Portal: - Your [facility] Medical Record Number - Your personal home email address (must match what is in your electronic medical record, Registration staff can assist with this) - Name - Date of Capabilities of the Patient Portal: - Message some providers - View upcoming appointments - Access your health summary, medical history, and visit history - View current conditions and allergies - View procedure and lab results - View your medications, including guidelines, side effects, and precautions - Complete pre-appointment questionnaires requested by your provider - Ready summary reports of your office visits and procedures To access the Patient Portal Mobile Rose, follow these directions: - Search [employer] in the Rose Store or Digital Performance Store - Download the Rose - Search for [facility] - Enter your login/password Prescriptions: No Action atorvastatin 80 mg tablet 80 mg PO DAILY metformin 1,000 mg tablet 1,000 mg PO DAILY lisinopril 10 mg tablet 10 mg PO DAILY aspirin 81 mg tablet,chewable 81 mg PO DAILY hydrochlorothiazide 25 mg tablet 25 mg PO DAILY metoprolol succinate 25 mg tablet extended release 24 hr 25 mg PO DAILY Jardiance 25 mg tablet 25 mg PO DAILY metronidazole [Flagyl] 375 mg capsule 375 mg PO BID Qty: 14 0RF cephalexin 500 mg capsule 500 mg PO Q6H 10 Days Qty: 40 0RF hydrocortisone [Anti-Itch (HC)] 1 % cream 1 appl topical BID PRN (Reason: rash) Qty: 28.35 0RF Referrals: Mikala Armas MD [Primary Care Provider, Medical] Interventions: ED Discharge Assessment Last Done: 05/21/25 18:10 Discharge Date/Time: 05/21/25 18:11 Print Language: Comoran
--- OUTSIDE RECORDS SUMMARY | 2025-05-21 18:07 | XMS_ITS | Patient Health Record ---
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 Oral; Duration: 30 Active Lisinopril 10 MG TAKE ONE TABLET BY MOUTH EVERY DAY Oral; Duration: 90 Active metFORMIN HCl 1000 MG Oral; Duration: 90 Active Metoprolol Succinate ER 25 MG TAKE ONE T ABLET BY MOUTH EVERY DAY Oral; Duration: 90 Active hydroCHLOROthiazide 25 MG TAKE ONE TABLE T BY MOUTH EVERY DAY Oral; Duration: 90 Not-Taking Extra Depth Diabetic Shoes with 3 Pair Custom heat-molded multi-density innersoles for 1 year Dx: Active Aspirin Low Dose 81 MG TAKE ONE TABLET B Y MOUTH EVERY DAY Oral; Duration: 90 Active Bicalutamide 50 MG Oral; Duration: 30 Active Clindamycin HCl 300 MG TAKE 1 CAPSULE BY MOUTH EVERY 8 HOURS Oral; Duration: 7 Not-Taking Ibuprofen 800 MG TAKE ONE TABLET BY MOUTH THREE TIMES DAILY NEEDED Oral; Duration: 9 Not-Taking Amoxicillin 500 MG TAKE ONE CAPSULE BY MOUTH THREE TIMES DAILY UNTIL FINISHED Oral; Duration: 10 Not-Taking Immunizations Vaccine Route Administration Date Status Comme nts COVID-19 Pfizer BioNTech Vaccine Unknown 02/03/2021 Adm inistered COVID-19 Pfizer BioNTech Vaccine Unknown 02/24/2021 Adm inistered Social History Tobacco Use: Social History Observation Description Date Details (start date - stop date) Former Smoker NA - NA Tobacco Use/Smoking Question Answer Notes Are you a: former smoker Additional Findings: Tobacco Non-User Current no n-smoker Alcohol Screen Question Answer Notes Did you have a drink containing alcohol in the p ast year? No Points 0 Interpretation Negative Tobacco use other than smoking: Question Answer Notes Are you an other tobacco user? No Problems Problem Type SNOMED Code ICD Code Onset Dates Problem Status W/U Status Risk Notes Problem Acquired hallux valgus (54174661) Hallux valgus (acquired), left foot (M20.12) Active confirmed Problem Acquired hallux valgus (82130220) Hallux valgus (acquired), right foot (M20.11) Active confirmed Problem Polyneuropathy due to type 2 diabetes mellitus (406513186) Type 2 diabetes mellitus with diabetic polyneuropathy (E11.42) Active confirmed Problem 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 I (771492925) Type 1 diabetes mellitus with diabetic polyneuropathy (E10.42) Active confirmed Plan Of Treatment Pending Test Test Name Order Date [id number] SKIN LESIONS, OVER 4 05/14/20 21 Insurance Providers Payer Name Payer Address Payer Phone Subscriber Number Group Number Insured Name Patient Relationship to Insured Coverage Start Date Coverage End Date [employer] [id number] [address] [address] [place] [address] [id number] Jerardo Lacey Self - patient is the insured Medical (General) History Medical History History ICD Code Cancer Diabetic Measles Chicken pox High blood pressure Surgical History Surgery Date(Month/Year) heart surgery unspecified 2016 bypass surgery X5 Hospitalization History Reason Date(Month/Year) [facility] 04/2021
--- OUTSIDE RECORDS SUMMARY | 2025-05-21 18:07 | XMS_ITS | Clinical Summary ---
Author Organization [facility] Address [address] [place] [phone] Phone Care Team Providers Care Supervisor [employer] Name Role Phone RamonJoanne Harrington Kelsey DO Primary Car e Provider Allergies Active Allergy Reactions Criticality Noted Date Comments Ibuprofen Rash Low 04/09/2016 Pt reports he took it recently without a reaction Medications acetaminophen (TYLENOL) 325 mg tablet Take 2 tablets (650 mg total) by mouth every 4 (four) hours as needed for mild pain (fever). 0 6 Active Additional Information Patient not taking.Reported on 06/18/2016 aspirin 325 MG tablet Take 1 tablet (325 mg total) by mouth daily. 30 tablet 3 6 Active glipiZIDE (GLUCOTROL) 5 MG 24 hr tablet Take 1 tablet (5 mg total) by mouth daily with breakfast. 30 tablet 3 6 Active atorvastatin (LIPITOR) 80 MG tablet Take 1 tablet (80 mg total) by mouth nightly. 30 tablet 3 6 Active metoprolol succinate (TOPROL-XL) 25 MG 24 hr tablet Take 1 tablet (25 mg total) by mouth daily. 30 tablet 3 6 Active metFORMIN (GLUCOPHAGE) 1000 MG tablet Take 1 tablet (1,000 mg total) by mouth 2 (two) times a day with meals. 60 tablet 3 6 Active furosemide (LASIX) 20 MG tablet Take 1 tablet (20 mg total) by mouth daily. 14 tablet 0 6 Active potassium chloride SA (K-DUR,KLOR-CON ) 20 MEQ tablet Take 1 tablet (20 mEq total) by mouth daily. 14 tablet 0 6 Active Active Problems Problem Noted Date Diagnosed Date Diabetes 05/14/2016 Assessment & Plan (05/16/2016 10:46 AM EDT): He takes Metformin at home for his diabetes. SSIC as needed and he is back on metformin. Dr Johnson following Coronary artery disease 05/02/2016 Assessment & Plan (05/16/2016 10:53 AM EDT): S/p CABG x 4 on May 13. He is on Aspirin and high potency statin - Preop toprol 25 daily, Rate suboptimal was tolerating escalted doses of BBl would consider adding evening dose. - Post op anemia, down to 22 despite diuresis, should improve with diuresis, but may need to consider transfusion. - 5lbs up from preop, edematous extremities with O2 requirements,continue with diuresis -ECG 05/14 with submillimeter TIFFANIE lateral leads would repeat ECG - encourage mobility -Follows locally with Dr. Massey in [place], [place]. Essential hypertension Hyperlipidemia S/P CABG (coronary artery bypass graft) Assessment & Plan (05/14/2016 9:42 AM EDT): CABG x 4 on 05/13. Family History Medical History Relation Comments Diabetes Father Diabetes Mother Relation Status Comments Father Mother Social History Tobacco Use Types Packs/Day Years Used Date Smoking Tobacco: Former Cigarettes 1 15 0 10/12/1956 - 10/12/1971 Smokeless Tobacco: Former Quit: 10/13/1971 Tobacco Cessation:Counseling Given: No Alcohol Use Standard Drinks/Week Comments No 0 [...] on file Sexual Orientation Not on file Last Filed Vital Signs Vital Sign Reading Time Taken Comments Blood Pressure 122/80 06/18/2016 12:49 PM EDT Pulse 84 06/18/2016 12:49 PM EDT Temperature 36.3 C (97.4 F) 06/18/2016 12:49 PM EDT Respiratory Rate 17 06/18/2016 12:49 PM EDT Oxygen Saturation 99% 06/18/2016 12:49 PM EDT Inhaled Oxygen Concentration 40% 05/13/2016 6 :00 PM EDT Weight 84.4 kg (186 lb) 05/17/2016 11:48 PM EDT Height 167.6 cm (5' 6 ) 05/13/2016 1:42 PM EDT Body Mass Index 30.02 05/13/2016 1:42 PM EDT Plan of Treatment Health Maintenance Due Date Last Done Comments BLOOD PRESSURE 1949 DEPRESSION SCREENING 1961 SMOKING Hx and SMOKELESS TOBACCO SCREENING 1962 HEPATITIS C SCREENING 1967 COLOGUARD 1994 COLONOSCOPY 1994 COLORECTAL CANCER SCREENING 1994 FIT TEST 1994 FOBT 1994 SIGMOIDOSCOPY 1994 VIRTUAL COLONOSCOPY 1994 ZOSTER VACCINES (1 of 2) 1999 DIABETIC EYE EXAM 04/09/2016 URINE MICROALBUMIN/CREATININE RATIO 04/09/2016 HEMOGLOBIN A1C 08/08/2016 05/08/2016, 04/09/2016 CREATININE LEVEL 05/17/2017 05/17/2016, 02/2016, 05/15/2016, Additional history exists POTASSIUM LEVEL 05/17/2017 05/17/2016, 0802/2016, 05/15/2016, Additional history exists Adult Td,Tdap Booster 01/17/2021 01/17/2011, 000 PNEUMOCOCCAL VACCINES (50+ years) (3 of 3 - PCV20 or PCV21) 11/23/2022 11/23/2017, 03/10/2013 COVID-19 VACCINE (3 - season) 2024 02/24/2021, 02/03/2021 RSV VACCINE (1 - 1-dose 75+ series) 2024 HEPATITIS A VACCINES Aged Out No long er eligible based on patient's age to complete this topic HIB VACCINES Aged Out No longer eligi ble based on patient's age to complete this topic MENINGOCOCCAL VACCINES (ACWY) Aged Out No longer eligible based on patient's age to complete this topic MENINGOCOCCAL VACCINES (B) Aged Out N o longer eligible based on patient's age to complete this topic Medical Devices Not on file Procedures Procedure Name Priority Date/Time Associated Diagnosis Comments BASIC METABOLIC PANEL Routine 05/17/2016 6:30 AM EDT HEMOGLOBIN A1C Routine 05/08/2016 2:13 PM EDT Preoperative testing from Last 3 Months or Most Recently Relevant to Health Maintenance Results * (ABNORMAL) Basic metabolic panel (05/17/2016 6:30 AM EDT) SODIUM 136 135 - 145 mmol/L [facility] DEPARTMENT OF PATHOLOGY POTASSIUM 4.2 3.4 - 5.0 mmol/L [facility] DEPARTMENT OF PATHOLOGY CHLORIDE 95(L) 98 - 108 mmol/L [facility] DEPARTMENT OF PATHOLOGY CO2 29 23 - 32 mmol/L [facility] DEPARTMENT OF PATHOLOGY BUN 13 8 - 25 mg/dL [facility] DEPARTMENT OF PATHOLOGY CREATININE 0.64 0.60 - 1.50 mg/dL [facility] DEPARTMENT OF PATHOLOGY GLUCOSE 159(H) 70 - 110 mg/dL [facility] DEPARTMENT OF PATHOLOGY CALCIUM 8.3(L) 8.5 - 10.5 mg/dL [facility] DEPARTMENT OF PATHOLOGY EGFR >60 mL/min/1. 73m2 [facility] DEPARTMENT OF PATHOLOGY Comment:Abnormal if <60 mL/m in/1.73m2. If patient is -Chadian, multiply the result by 1.21. ANION GAP 12 3 - 17 mmol/L [facility] DEPARTMENT OF PATHOLOGY Blood 05/17/2016 6:30 AM EDT 05/17/2016 7:04 AM EDT us Walter GARCIA LAB BLOOD ORDERABLES Final Result [facility] DEPARTMENT OF PATHOLOGY [address] [place] [phone] * (ABNORMAL) Hemoglobin A1c (05/08/2016 2:13 PM EDT) HEMOGLOBIN A1C 8.3(H) 4.3 - 6.4 % [facility] DEPARTMENT OF PATHOLOGY CALC MEAN BLD GLUC 192 mg/dL [facility] DEPARTMENT OF PATHOLOGY Comment: There is no established normal range for the CMBG (Calculated Mean Blood Glucose). A hemoglobin A1c < 7% is the recommended target for most people with diabetes. The CMBG for an A1c of 7% is 154 mg/dL. The diagnostic hemoglobin A1c level for diabetes is greater than or equal to 6.5% which is a CMBG greater than or equal to 140 mg/dL. 05/08/2016 2:13 PM EDT 05/08/2016 7:19 PM EDT us Miller Pastrana MD LAB BLOOD ORDERABLES Fin al Result [facility] DEPARTMENT OF PATHOLOGY [address] [place] [phone] from Last 3 Months or Most Recently Relevant to Health Maintenance [place] [address] [address] [place] [address] MEDICARE REPLACEMENT [facility] SAFETY NET PARTIAL MEDICARE REPLACEMENT [place] [id number] [employer] [facility] NET PARTIAL MEDICARE REPLACEMENT [place] [id number] NET PARTIAL MEDICARE REPLACEMENT Member Subscriber Plan / Payer (Ef fective 2016-Present) Name:Jerardo Lacey Relation to Subscriber:Self Name:Jerardo Lacey Payer ID:[id number] (NAIC) Type:Medicare Address: [place] [id number] [employer] SAFETY NET PARTIAL MEDICARE REPLACEMENT HEALTH S[employer] NET PARTIAL MEDICARE REPLACEMENT [employer] NET PARTIAL MEDICARE REPLACEMENT HEALTH SAFET[employer] NET PARTIAL HEALTH SAFETY NET PARTIAL MEDICARE REPLACEMENT [facility] SAFETY NET PARTIAL Advance Directives For more information, please contact: [phone] (9AM - 5PM [facility], Thursday-Thursday) Documents on File Type Date Recorded Patient Sample Supervisor Expl anation Healthcare Proxy 05/08/2016 1:29 PM Signed 05/08/2016 * Full Code (Presumed) (Latest Code Status on File) Date Activated Date Inactivated Comments 05/13/2016 12:32 PM 05/18/2016 11:13 PM Care Teams Supervisor [employer] Relationship Specialty Start Date End Date Joanne Hernandez DO PCP - General Internal Medicine 03/27/16 Additional Source Comments The information contained in this document represents components of the legal health record. It is not the complete legal health record.[facility]
[2025-05-21 18:10] VITALS: BP 157/73; PULSE 55; RESP 16; TEMP 36.4; O2SAT 97
== END 2025-05-21 18:11 | disposition home or self-care (01) ==
PROVIDERS: Emergency Provider Emergency Medicine Emergency Medical Services; PCP Internal Medicine
DX: S80.11XA Contusion of right lower leg, initial encounter (principal); M79.604 Pain in right leg; X58.XXXA Exposure to other specified factors, initial encounter; Y93.9 Activity, unspecified; Y92.9 Unspecified place or not applicable; Y99.8 Other external cause status; Z79.899 Other long term (current) drug therapy
CPT/HCPCS: 73590; 99282; 99283

== ENCOUNTER → 2025-05-21 16:34 | Outpatient (BNV) | payer MEDICARE, SELFPAY | PROVIDERS: Emergency Provider Emergency Medicine Emergency Medical Services; PCP Internal Medicine; Visit Provider Specialist | DX: M79.604 Pain in right leg (principal); S89.91XA Unspecified injury of right lower leg, initial encounter | CPT/HCPCS: 73590 ==

== ENCOUNTER 2025-10-04 20:48 | Emergency (ER) | payer MEDICARE, SELFPAY ==
--- OUTSIDE RECORDS SUMMARY | 2016-03-02 23:00 | XMS_ITS | Encounter Summary ---
Author Organization [facility] Address [address] [place] [address] Phone Care Team Providers Care Discount Clerk Name Role Phone Unavailable Primary Care Provider Unavailabl e Encounter Details Date Type Department Care Team ([facility] st Contact Info) Description 03/03/2016 Hospital Encounter [facility] [address] [place] [address] Miller Pastrana MD [address] [id number] [email or web address] Social History Tobacco Use Types Packs/Day Years Used Date Smoking Tobacco: Former Cigarettes 1 15 0 10/12/1956 - 10/12/1971 Smokeless Tobacco: Former Quit: 10/13/1971 Alcohol Use Standard Drinks/Week Comments No 0 (1 standard drink = 0.6 oz pur e alcohol) Education Answer Date Recorded Are you interested in more education? Not on noemi e 02/06/2023 Are you concerned about learning? Not on file 02/06/2023 No 02/06/2023 No 02/06/2023 Digital Access Answer Date Recorded No 03/09/2023 No 03/09/2023 No 03/09/2023 Reliable internet access at home? Not on file 03/09/2023 Device with a working camera? Not on file Sex and Gender Information Value Date Recorded Sex Assigned at Not on file Legal Sex Male 10:09 AM EDT Gender Identity Not on file Sexual Orientation Not on file documented as of this encounter Plan of Treatment Not on file documented as of this encounter Procedures Procedure Name Priority Date/Time Associated Diagnosis Comments US VASCULAR OUTSIDE (NO INTERPRETATION) Routine 03/03/2016 12:00 AM EDT documented in this encounter Results * US Vascular Outside (No Interpretation) (03/03/2016 12:00 AM EDT) Narrative [facility] INTER[facility]AC[facility] - 04/02/2016 3:20 PM EDT This study is for PACS storage only and not for interpretation. Procedure Note SYSTEMGENERATED, DOCUMENTATION - 04/02/2016 This study is for PACS storage only and not for interpretation. us Miller Pastrana MD CV US VASCULAR Final Re sult [facility] documented in this encounter Visit Diagnoses Not on filedocumented in this encounter Additional Source Comments The information contained in this document represents components of the legal health record. It is not the complete legal health record.[facility]
[2025-10-04 20:55] VITALS: PULSE 54; RESP 15; TEMP 36.5; O2SAT 99; BMI 29.9
--- NOTE | 2025-10-04 21:30 | ED.GENADULT ---
HPI - General Adult General Chief complaint: Skin/Abscess/Foreign Body Stated complaint: rash? Time Seen by Provider: 10/04/25 21:25 Source: patient, RN notes reviewed and old records reviewed Mode of arrival: ambulatory Limitations: no limitations History of Present Illness ED Provider: Cecil HPI narrative: 75-year-old male past medical history significant for diabetes, hypertension presents for evaluation of a rash to his right groin pain He reports that it started to get worse yesterday. He reports it is slightly itchy and slightly painful. He tried to treat it with Neosporin with no improvement in his symptoms. Denies any fevers chills pain Did not have injury or scratches to the area denies any testicular pain, swelling or testicular rashes. He has no difficulty urinating Related Data Home Medications ?Medication ?Instructions ?Recorded ?Confirmed aspirin 81 mg chewable tablet 81 mg PO DAILY 05/16/24 05/30/24 atorvastatin 80 mg tablet 80 mg PO DAILY 05/16/24 05/30/24 empagliflozin 25 mg tablet 25 mg PO DAILY 05/16/24 05/30/24 (Jardiance) hydrochlorothiazide 25 mg tablet 25 mg PO DAILY 05/16/24 05/30/24 lisinopril 10 mg tablet 10 mg PO DAILY 05/16/24 05/30/24 metformin 1,000 mg tablet 1,000 mg PO DAILY 05/16/24 05/30/24 metoprolol succinate 25 mg 25 mg PO DAILY 05/16/24 05/30/24 tablet,extended release 24 hr Previous Rx's ?Medication ?Instructions ?Recorded metronidazole 375 mg capsule 375 mg PO BID #14 caps 05/18/24 (Flagyl) cephalexin 500 mg capsule 500 mg PO Q6H 10 days #40 caps 08/12/24 hydrocortisone 1 % topical cream 1 appl topical BID PRN rash #28.35 08/15/24 (Anti-Itch (hydrocortisone)) grams ketoconazole 2 % topical cream 1 appl topical BID 14 days #30 10/04/25 grams Allergies Allergy/AdvReac Type Severity Reaction Status Date / Time No Known Allergies Allergy Verified 10/04/25 20:58 Review of Systems Constitutional: Constitutional: Denies body ache(s), Denies chills, Denies fever(s) and Denies headache(s) Eyes: Eyes: Denies blurry vision ENT: Denies headache(s) Integumentary/Breasts: Skin/Breast: Reports pruritus, Reports erythema and Reports rash Neurologic: Denies headache(s) [facility] Past Medical History Medical History Hyperlipidemia Hypertension Coronary artery disease Surgical History History of laparoscopic appendectomy (05/16/24) S/P CABG x 4 Social History Social History Household Members: None Housing: Apartment Patient Tobacco Use Status: Never used Tobacco Smoked in Last 30 Days: No Second Hand Smoke Exposure: No Use of substances other than those prescribed or required for medical reasons: No Advance Directives: No Advance Directives Information Provided: No Do you have a plan to hurt others: No Plan service: No Physical Exam ED Vital Signs: Vital Signs - 24 hr 10/04/25 20:55 10/04/25 21:38 Temperature 97.7 F 97.7 F Pulse Rate 54 54 Respiratory Rate 15 15 Blood Pressure 00/00 L Pulse Oximetry 99 99 Oxygen Delivery Method Room Air Room Air BMI result Body Mass Index 29.9 Const General: healthy appearing, comfortable, no acute distress, alert and awake Nutritional Appearance: well nourished Orientation/consciousness: patient oriented x3 HENMT Head: Yes normocephalic and Yes atraumatic Eyes Eyelids: Yes eyelids normal Conjunctivae: conjunctivae normal Sclerae: sclerae normal Corneas: corneas normal Pupils: Equal, round and reactive pupils present EOM: EOMs intact bilaterally Neck Neck: Yes full ROM Resp Effort & Inspection: normal respiratory effort, able to speak in complete sentences and not labored GI Inspection: No distended Palpation (GI): Soft to palpation, not firm, nontender, no guarding and not rigid Auscultation: normoactive bowel sounds Skin Other: the patient has a mildly erythematous rash to the right inguinal fold with some silver discoloration. No fluctuance, no induration, no purulence, no open wounds. General skin exam: elasticity normal Neuro General: patient oriented x3 Cranial nerves: Yes Equal, round and reactive pupils present and Yes Bilaterally intact EOM present Cognition (Neuro): normal cognition Extrem Other: Moving all extremities well without any obvious deformities Medical Decision Making Medical Decision Making MDM Narrative: 75-year-old male presents for evaluation of a rash was inguinal fold. The rash is most consistent with a candidal rash. The patient is a diabetic. No evidence of bacterial infection. We will treat with ketoconazole for up to 2 weeks. Differential Diagnosis Differential Diagnoses: The differential diagnosis associated with the presentation includes Tinea corporis Yeast infection Candidiasis Cellulitis Dermatitis Eczema Discharge Plan Discharge Clinical Impression: Candidiasis Patient Disposition: Home, Self-Care Instructions: Tinea Corporis (ED), Skin Yeast Infection (ED) Additional Instructions: your rash is consistent with a fungal infection. Apply the ketoconazole as directed for 10-14 days. Follow up with your primary doctor, return for new or worsening symptoms Prescriptions: New ketoconazole 2 % cream 1 appl topical BID 14 Days Qty: 30 0RF No Action atorvastatin 80 mg tablet 80 mg PO DAILY metformin 1,000 mg tablet 1,000 mg PO DAILY lisinopril 10 mg tablet 10 mg PO DAILY aspirin 81 mg tablet,chewable 81 mg PO DAILY hydrochlorothiazide 25 mg tablet 25 mg PO DAILY metoprolol succinate 25 mg tablet extended release 24 hr 25 mg PO DAILY Jardiance 25 mg tablet 25 mg PO DAILY metronidazole [Flagyl] 375 mg capsule 375 mg PO BID Qty: 14 0RF cephalexin 500 mg capsule 500 mg PO Q6H 10 Days Qty: 40 0RF hydrocortisone [Anti-Itch (HC)] 1 % cream 1 appl topical BID PRN (Reason: rash) Qty: 28.35 0RF Interventions: ED Discharge Assessment Last Done: 10/04/25 21:38 Discharge Date/Time: 10/04/25 21:41 Print Language: Hebrew
--- NOTE | 2025-10-04 21:31 | PC.NURSE ---
Pt a&ox4, no signs of distress. Pt ambulates with a steady gait. Pt reports NKDA, and denies pain Plan of care ongoing.
--- OUTSIDE RECORDS SUMMARY | 2025-10-04 21:34 | XMS_ITS | Encounter Summary ---
Author Organization [facility] Address [address] [place] [address] Care Team Providers Care Supervisor Costuming Name Role Phone Mikala Armas MD Primary Care Provider [phone] Encounter Details Date Type Department Care Team ([facility] st Contact Info) Description 09/12/2025 Results Follow-Up Adult Medicine [facility] [address] [place], [place] [phone] Rich De La O NP [address] [place], [place] Social History Tobacco Use Types Packs/Day Years Used Date Smoking Tobacco: Former Cigarettes 0.5 8 0 10/12/1963 - 10/12/1971 Smokeless Tobacco: Never Alcohol Use Standard Drinks/Week Comments No 0 (1 standard drink = 0.6 oz pur e alcohol) Interpersonal Safety Answer Date Record ed Physical Abuse Unrecognized value 03/04/2025 Verbal Abuse Unrecognized value 03/04/2025 Sex and Gender Information Value Date Recorded Sex Assigned at Not on file Legal Sex Male 2:59 AM EST Gender Identity Not on file Sexual Orientation Not on file documented as of this encounter Functional Status * Are you deaf or do you have serious difficulty hearing? Answer Date of Assessment Author No 03/04/2025 8:11 AM EDT Pascual Velez RN * Are you blind or do you have serious difficulty seeing, even when wearing glasses? Answer Date of Assessment Author No 03/04/2025 8:11 AM EDT Pascual Velez RN * Do you have serious difficulty walking or climbing stairs? Answer Date of Assessment Author No 03/04/2025 8:11 AM EDT Dolsandy, As lele Meza RN * Do you have serious difficulty dressing or bathing? Answer Date of Assessment Author No 03/04/2025 8:11 AM EDT Rosie, As lele Meza RN * Because of a physical, mental, or emotional condition, do you have serious difficulty doing errandsalone such as visiting the doctor? Answer Date of Assessment Author No 03/04/2025 8:11 AM EDT Dolsandy, As lele Meza RN documented as of this encounter Mental Status * Because of a physical, mental, or emotional condition, do you have serious difficulty concentrating, remembering, or making decisions? (5 years old or older) Answer Entry Date Author No 03/04/2025 8:11 AM EDT Rosie, As lele Meza RN documented in this encounter Plan of Treatment Upcoming Encounters Date Type Department Care Team (Late st Contact Info) Description 10/13/2025 2:00 PM EST Office Visit Adult Medicine [address] [phone] Noah Euceda PA [address] [place], [place] 01/04/2026 9:30 AM EDT Office Visit Adult Medicine [address] [phone] Rich De La O NP [address] [place] [address] documented as of this encounter Visit Diagnoses Not on filedocumented in this encounter Care Teams Supervisor Costuming Relationship Specialty Start Date End Date Mikala Armas MD [address] [place] [address] PCP - General Internal Medicine 07/26/21 documented as of this encounter
--- OUTSIDE RECORDS SUMMARY | 2025-10-04 21:34 | XMS_ITS | Encounter Summary ---
Author Organization [facility] Address [address] [place] [address] Care Team Providers Care Component Technician Name Role Phone Mikala Armas MD Primary Care Provider [phone] Encounter Details Date Type Department Care Team ([facility] st Contact Info) Description 09/01/2025 Results Follow-Up Adult Medicine [address] [phone] Noah Euceda PA [address] [place] [address] Social History Tobacco Use Types Packs/Day Years [...] of Assessment Author No 03/04/2025 8:11 AM CAPRICET Pascual Velez RN * Do you have serious difficulty walking or climbing stairs? Answer Date of Assessment Author No 03/04/2025 8:11 AM EDT Rosie, Pascual Meza RN * Do you have serious difficulty dressing or bathing? Answer Date of Assessment Author No 03/04/2025 8:11 AM EDT Rosie, Pascual Meza RN * Because of a physical, mental, or emotional condition, do you have serious difficulty doing errandsalone such as visiting the doctor? Answer Date of Assessment Author No 03/04/2025 8:11 AM EDT Rosie, As lele Meza RN documented as of this encounter Mental Status * Because of a physical, mental, or emotional condition, do you have serious difficulty concentrating, remembering, or making decisions? (5 years old or older) Answer Entry Date Author No 03/04/2025 8:11 AM EDVeronica Velez, Pascual Meza RN documented in this encounter Plan of Treatment Upcoming Encounters Date Type Department Care Team (Late st Contact Info) Description 10/13/2025 2:00 PM EST Office Visit Adult Medicine [address] [phone] Noah Euceda PA [address] [place] [address] 01/04/2026 9:30 AM EDT Office Visit Adult Medicine [address] [phone] Rich De La O NP [address] [place] [address] documented as of this encounter Visit Diagnoses Not on filedocumented in this encounter Care Teams Component Technician Relationship Specialty Start Date End Date Mikala Armas MD [address] [place] [address] PCP - General Internal Medicine 07/26/21 documented as of this encounter
--- OUTSIDE RECORDS SUMMARY | 2025-10-04 21:34 | XMS_ITS | Patient Health Record ---
Author Organization [facility] Address [address] [place] [address] Care Team Providers Care Medical Technologist Hematology Name Role Phone Joanne Hernandez Primary Care Provid er Unavailable Rick Mitchell Unavailable [phone] Joanne Luna Unavailable Mimi vailable Allergies No [...] Status Risk Notes Problem Acquired hallux valgus (24216032) Hallux valgus (acquired), left foot (M20.12) Active confirmed Problem Acquired hallux valgus (31280909) Hallux valgus (acquired), right foot (M20.11) Active confirmed Problem Polyneuropathy due to type 2 diabetes mellitus (900994639) Type 2 diabetes mellitus with diabetic polyneuropathy (E11.42) Active confirmed Problem 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 I (749292530) Type 1 diabetes mellitus with diabetic polyneuropathy (E10.42) Active confirmed Plan Of Treatment Pending Test Test Name Order Date [id number] SKIN LESIONS, OVER 4 05/14/20 21 Insurance Providers Payer Name Payer Address Payer Phone Subscriber Number Group Number Insured Name Patient Relationship to Insured Coverage Start Date Coverage End Date [employer] Medicare [id number] [address] [address] [place] [address] [id number] Jerardo Lacey Self - patient is the insured Medical (General) History Medical History History ICD Code Cancer Diabetic Measles Chicken pox High blood pressure Surgical History Surgery Date(Month/Year) heart surgery unspecified 2016 bypass surgery X5 Hospitalization History Reason Date(Month/Year) [facility] 04/2021
--- OUTSIDE RECORDS SUMMARY | 2025-10-04 21:34 | XMS_ITS | Clinical Summary ---
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 Massey in [place], [place]. Essential hypertension Hyperlipidemia S/P CABG (coronary [...] with a working camera? Not on file 05 / Sex and Gender Information Value Date Recorded [...] TOBACCO SCREENING 1963 HEPATITIS C SCREENING 1967 ZOSTER VACCINES (1 of 2) 1999 DIABETIC EYE EXAM 04/09/2016 URINE MICROALBUMIN/CREATININE RATIO 04/09/2016 HEMOGLOBIN A1C 08/08/2016 05/08/2016, 04/09/2016 CREATININE LEVEL 05/17/2017 05/17/2016, 02/2016, 05/15/2016, Additional history exists POTASSIUM LEVEL 05/17/2017 05/17/2016, 08/0 02/2016, 05/15/2016, Additional history exists Adult Td,Tdap Booster 01/17/2021 01/17/2011, 000 PNEUMOCOCCAL VACCINES (50+ years) (3 of 3 - PCV20 or PCV21) 11/23/2022 11/23/2017, 03/10/2013 RSV VACCINE (1 - 1-dose 75+ series) 2024 INFLUENZA VACCINE (#1) 2025 , 09/12/2019, 11/09/2017 COVID-19 VACCINE (3 - 2024- season) 2025 02/24/2021, 02/03/2021 HEPATITIS A VACCINES Aged Out No long [...] Date/Time Associated Diagnosis Comments BASIC METABOLIC PANEL (BMP) Routine 05/17/2016 6:30 AM EDT HEMOGLOBIN A1C Routine 05/08/2016 2:13 PM EDT Preoperative testing from Last 3 Months or Most Recently Relevant to Health Maintenance Results * (ABNORMAL) Basic metabolic panel (05/17/2016 6:30 AM EDT) SODIUM 136 135 - 145 mmol/L [facility] POTASSIUM 4.2 3.4 - 5.0 mmol/L [facility] CHLORIDE 95(L) 98 - 108 mmol/L [facility] CO2 29 23 - 32 mmol/L [facility] BUN 13 8 - 25 mg/dL [facility] CREATININE 0.64 0.60 - 1.50 mg/dL [facility] GLUCOSE 159(H) 70 - 110 mg/dL [facility] CALCIUM 8.3(L) 8.5 - 10.5 mg/dL [facility] EGFR >60 mL/min/1. 73m2 [facility] Comment:Abnormal if <60 mL/m in/1.73m2. If patient is -Haitian, multiply the result by 1.21. ANION GAP 12 3 - 17 mmol/L [facility] Blood 05/17/2016 6:30 AM EDT 05/17/2016 7:04 AM EDT us Walter GARCIA LAB BLOOD BKR ORDERABLES Fi nal Result [facility] [address] [place] [address] * (ABNORMAL) Hemoglobin A1c (05/08/2016 2:13 PM EDT) HEMOGLOBIN A1C 8.3(H) 4.3 - 6.4 % [facility] CALC MEAN BLD GLUC 192 mg/dL [facility] Comment: There is no [...] EDT us Miller Pastrana MD LAB BLOOD BKR ORDERABLES Final Result Performing Organization Address City/State/[facility] [[email or web address]] Co de Phone Number [facility] [address] [place] [address] from Last 3 Months or Most Recently Relevant to Health Maintenance [place] [address] [place] [address] MEDICARE REPLACEMENT HEALTH SAF[employer]Y NET PARTIAL MEDICARE REPLACEMENT DNA Response SAFETY NET PARTIAL MEDICARE REPLACEMENT DNA Response SAF[employer]Y NET PARTIAL MEDICARE REPLACEMENT Member Subscriber Plan / Payer (Ef fective 2016-Present) Name:Jerardo Lacey Relation to Subscriber:Self Name:Jerardo Lacey Payer ID:[id number] (NAIC) Type:Medicare Address: [place] [id number] [place] [id number] DNA Response SAFETY NET PARTIAL MEDICARE REPLACEMENT DNA Response SAFETY NET PARTIAL MEDICARE REPLACEMENT DNA Response SAFETY NET PARTIAL MEDICARE REPLACEMENT HEALTH SAF[employer] NET PARTIAL MEDICARE REPLACEMENT Member Subscriber Plan / Payer (Ef fective 2016-Present) Name:Darrell Laceytor Relation to Subscriber:Self Name:Jerardo Lacey Payer ID:[id number] (NAIC) Type:Medicare Address: [address] PARTIAL MEDICARE REPLACEMENT [facility] NET PARTIAL Advance Directives For more information, please contact: [phone] (9AM - 5PM [facility], Thursday-Thursday) Documents on File Type Date Recorded Patient 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 It is not the complete legal health record.[facility]
--- OUTSIDE RECORDS SUMMARY | 2025-10-04 21:34 | XMS_ITS | Clinical Summary ---
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 antibodies to HIV type 1 (including group O) and type 2. Use of a 4th generation assay is the current CDC recommendation for HIV screening. [facility] LAB BLOOD ORDERABLES Final Res ult Performing Organization Address City/[facility]/ZIP Co de Phone Number [facility] [address] [place] [address], [place] [phone] * (ABNORMAL) Urinalysis with reflex microscopic and culture (09/01/2025 9:23 AM EST) Specific [place] Urine 1.020 1.003 - 1.030 LAB URINALYSIS - AUTOMATED METHOD 09/01/2025 12:05 PM [facility] pH, Urine 6.0 5.0 - 8.0 pH LAB URINALYSIS - AUTOMATED METHOD 09/01/2025 12:05 PM [facility] Leukocytes, Urine Negative Negative LAB URINALYSIS - AUTOMATED METHOD 09/01/2025 12:05 PM [facility] Nitrite, Urine Negative Negative LAB URINALYSIS - AUTOMATED METHOD 09/01/2025 12:05 PM [facility] Protein, Urine Negative <=Trace mg/dL LAB URINALYSIS - AUTOMATED METHOD 09/01/2025 12:05 PM [facility] Glucose, Urine 500(A) Negative mg/dL LAB URINALYSIS - AUTOMATED METHOD 09/01/2025 12:05 PM [facility] Ketones, Urine Negative Negative mg/dL LAB URINALYSIS - AUTOMATED METHOD 09/01/2025 12:05 PM [facility] Urobilinogen, Urine 0.2 0.2 - 1.0 mg/dL LAB URINALYSIS - AUTOMATED METHOD 09/01/2025 12:05 PM [facility] Bilirubin, Urine Negative Negative LAB URINALYSIS - AUTOMATED METHOD 09/01/2025 12:05 PM [facility] Blood, Urine Negative Negative LAB URINALYSIS - AUTOMATED METHOD 09/01/2025 12:05 PM [facility] Urine Urine specimen obtained by clean catch procedure / Unknown Non-blood Collection / Unknown 09/01/2025 9:23 AM EST 09/01/2025 9:23 AM EST us Noah GARCIA LAB URINE ORDERABLES Final Res ult [facility] [address] [place] [address], * Treponema pallidum antibody with reflex to RPR and particle agglutination (09/01/2025 9:23 AM EST) T. Pallidum Antibodies Negative Negative 09/01/2025 1:26 PM EST [facility] Blood Venous blood specimen / Unknown Venipuncture / Unknown 09/01/2025 9:23 AM EST 09/01/2025 9:23 AM EST Noah GARCIA LAB BLOOD ORDERABLES Final Res ult Performing Organization Address [facility]/ZIP Co de Phone Number [facility] [address] [place] [address], [place] [phone] * Microalbumin creatinine urine ratio (09/01/2025 9:23 AM EST) Creatinine, Urine 70.0 mg/dL 09/01/2025 1:17 PM [facility] Microalb, Ur <3.0 0.0 - 29.0 mg/L 09/01/2025 1:17 PM [facility] Microalb/Creat Ratio <4 <30 mg/g creat 09/01/2025 1:17 PM [facility] Urine Urine specimen obtained by clean catch procedure / Unknown Non-blood Collection / Unknown 09/01/2025 9:23 AM EST 09/01/2025 9:23 AM EST us Noah GARCAI LAB URINE ORDERABLES Final Res ult Performing Organization Address City/[facility]/ZIP Co de Phone Number [facility] [address] [place] [address], [place] [phone] * External Diabetic Retina Eye Exam Report (06/09/2025) Anatomical Region Laterality Modality Ultrasound Provider [facility] US PROCEDURES Final Result * (ABNORMAL) Lipid panel with reflex to direct LDL (11/10/2024 9:47 AM EST) Cholesterol 127 0 - 200 mg/dL LAB CHEMISTRY METHOD 11/10/2024 12:43 PM EST [facility] Triglycerides 180(H) 0 - 150 mg/dL LAB CHEMISTRY METHOD 11/10/2024 12:43 PM EST [facility] HDL 37(L) >=40 mg/dL LAB CHEMISTRY METHOD 11/10/2024 12:43 PM EST [facility] LDL Calculated 54 0 - 100 mg/dL LAB CHEMISTRY METHOD 11/10/2024 12:43 PM [facility] VLDL Cholesterol Boogie 36 mg/dL LAB CHEMISTRY METHOD 11/10/2024 12:43 PM EST [facility] Non HDL Chol. (LDL+VLDL) 90 <145 mg/dL LAB CHEMISTRY METHOD 11/10/2024 12:43 PM EST [facility] Chol/HDL Ratio 3.4 0.0 - 4.4 LAB CHEMISTRY METHOD 11/10/2024 12:43 PM [facility] Blood Venous blood specimen / Unknown Venipuncture / Unknown 11/10/2024 9:47 AM EST 11/10/2024 9:47 AM EST Mikala Armas MD LAB BLOOD ORDERABLES Final Resul t [facility] [address] [place] [address], * Falls Risk Assessment (02/29/2024) Falls Risk Assessment Abstracted Historical Provider HEALTH MAINTENANCE Final Result * Depression Screening (09/25/2023) Depression Screening Abstracted [facility] Provider HEALTH MAINTENANCE Final Result * Abdominal Aortic Aneurysm Screen (06/30/2018) Abdominal Aortic Aneurysm (AAA) Screening Abstracted Anatomical Region Laterality Modality Other [facility] Provider HEALTH MAINTENANCE Final Result * Colonoscopy (10/24/2014) Colonoscopy Abstracted, no interpretation Anatomical Region Laterality Modality Other [facility] Provider HEALTH MAINTENANCE Final Result from Last 3 Months or Most Recently Relevant to Health Maintenance Insurance [employer] MEDICARE [facility] GENERIC Advance Directives * Full Code - Confirmed (Latest Code Status on File) Date Activated Date Inactivated Comments 03/04/2025 3:19 PM 03/06/2025 12:17 AM This code s tatus was ascertained in the following way: Code status discussion: discussion with patient To update the patient's code status, place a code status order. Do not modify or discontinue any currently active code status orders. * Full Code - Default Date Activated Date Inactivated Comments 03/04/2025 2:57 PM 03/04/2025 3:19 PM This is orde r is used when code status has not been discussed with the patient, or code status is otherwise unknown/unconfirmed To update the patient's code status, place a code status order. Do not modify or discontinue any currently active code status orders. Care Teams Clay Roaster Relationship Specialty Start Date End Date Mikala Armas MD [address] [place] [id number] PCP - General Internal Medicine 07/26/21
--- OUTSIDE RECORDS SUMMARY | 2025-10-04 21:34 | XMS_ITS | Encounter Summary ---
Author Organization [employer] Address [address] [place] [address] Care Team Providers Care Receiving Team Member Name Role Phone Mikala Armas MD Primary Care Provider [phone] Reason for Visit * Reason Onset Date Comments Medication Problem 09/29/2025 Encounter Details Date Type Department Care Team ([facility] Contact Info) Description 09/29/2025 Telephone Adult Medicine [facility] [address] [place] [address] Noah Euceda PA [address] [place] [address] Social History Tobacco Use Types Packs/Day Years [...] of Assessment Author No 03/04/2025 8:11 AM Pascual Dinh RN * Do you have serious difficulty walking or climbing stairs? Answer Date of Assessment Author No 03/04/2025 8:11 AM LANA Velez, Pascual Meza RN * Do you have serious difficulty dressing or bathing? Answer Date of Assessment Author No 03/04/2025 8:11 AM LANA Velez, Pascual Meza RN * Because of a physical, mental, or emotional condition, do you have serious difficulty doing errandsalone such as visiting the doctor? Answer Date of Assessment Author No 03/04/2025 8:11 AM Pascual Dinh RN documented as of this encounter Mental Status * Because of a physical, mental, or emotional condition, do you have serious difficulty concentrating, remembering, or making decisions? (5 years old or older) Answer Entry Date Author No 03/04/2025 8:11 AM Pascual Dinh RN documented in this encounter Ordered Prescriptions Prescription Sig Dispense Quantity Refills Last Filled Start Date End Date metFORMIN (GLUCOPHAGE) 500 mg tabletIndications:D M (diabetes mellitus), type 2 with peripheral vascular complications (CMS/HCC V24, CMS/HCC V28) Take 1 tablet (500 mg total) by mouth 1 (one) time each day with breakfast. 30 each 09/29/2025 documented in this encounter Progress Notes * JOSE Pelaez - 09/29/2025 4:24 PM EST Patient does not want to take GLP-1 injections, cannot tolerate glipizide due to passing out, insurance will not cover Januvia. Patient's kidney function decreases when he is taking metformin. I am going to schedule a close follow-up with this patient in 2 weeks. I have put in orders for [facility] for repeat kidney function. At this time to give him some protection I am going to put him on a low-dose of metformin. At the 2-week appointment we will discuss further management. documented in this encounter Plan of Treatment Upcoming Encounters Date Type Department Care Team (Late st Contact Info) Description 10/13/2025 2:00 PM EST Office Visit [address] [phone] Noah Euceda PA [address] [place], [place] 01/04/2026 9:30 AM EDT Office Visit Adult Medicine [facility] [address] [place], [place] [phone] Rich De La O NP [address] [place], [place] Scheduled Orders Name Type Priority Associated Diagnoses Orde r Schedule Comprehensive metabolic panel Lab Routine DM (diabetes mellitus), type 2 with peripheral vascular complications ([facility] V24, [facility] V28) Expected: 10/06/2025, Expires: 09/29/2026 documented as of this encounter Visit Diagnoses Diagnosis DM (diabetes mellitus), type 2 with peripheral vascular complications ([facility] V24, [facility] V28)- Primary Type II or unspecified type diabetes mellitus with peripheral circulatory disorders, not stated as uncontrolled documented in this encounter Discontinued Medications Medication Sig Discontinue Reason Start Date End Da te metFORMIN (GLUCOPHAGE) 1,000 mg tabletIndications:DM (diabetes mellitus), type 2 with peripheral vascular complications ([facility] V24, [facility] V28) Take 1 tablet (1,000 mg total) by mouth 2 (two) times a day with meals. Formulary change 09/01/2025 09/29/2025 SITagliptin phosphate (JANUVIA) 100 mg tabletIndications:DM (diabetes mellitus), type 2 with peripheral vascular complications ([facility] V24, [facility] V28) Take 1 tablet (100 mg total) by mouth 1 (one) time each day. Cost of medication 09/27/2025 09/29/2025 documented as of this encounter Care Teams Receiving Team Member Relationship Specialty Start Date End Date Mikala Armas MD [address], [place] PCP - General Internal Medicine 07/26/21 documented as of this encounter
[2025-10-04 21:38] VITALS: BP 00/00; PULSE 54; RESP 15; TEMP 36.5; O2SAT 99
== END 2025-10-04 21:41 | disposition home or self-care (01) ==
PROVIDERS: Emergency Provider Emergency Medicine; PCP Internal Medicine
DX: B37.2 Candidiasis of skin and nail (principal); R21 Rash and other nonspecific skin eruption; E11.9 Type 2 diabetes mellitus without complications; I10 Essential (primary) hypertension; E78.5 Hyperlipidemia, unspecified; Z79.82 Long term (current) use of aspirin; Z79.02 Long term (current) use of antithrombotics/antiplatelets; Z79.84 Long term (current) use of oral hypoglycemic drugs; Z79.899 Other long term (current) drug therapy
CPT/HCPCS: 99282; 99284